=== PATIENT | male | born 1935 | race Caucasian/White ===

== ENCOUNTER 2018-08-12 14:53 | Emergency (ER) | payer MEDICARE ==
[2018-08-12] MEDS ORDERED: LIDOCAINE 1%-EPI 1:100,000 30 ML VIAL SQ STA (15:43)
[2018-08-12] MEDS ORDERED: DIPH,PERTUS(ACELL)TETVAC-LF 0.5 ML VIAL IM ONE (15:43)
--- NOTE | 2018-08-12 16:08 | CT ---
EXAMINATION TYPE: CT brain cspine wo con, CT facial bones wo con DATE OF EXAM: 08/12/2018 COMPARISON: CT brain August 14, 2015 HISTORY: Fall injury, laceration to left side of forehead, headache and neck pain. CT DLP: mGycm. Automated Exposure Control for Dose Reduction was Utilized. TECHNIQUE: CT scan of the head and cervical spine are performed without contrast. FINDINGS: There is no acute intracranial hemorrhage or midline shift identified. There is ventricul ar and sulcal prominence consistent with diffuse cerebral atrophy. There is low-attenuation in the de ep and periventricular white matter consistent with product of chronic small vessel ischemic change. The calvarium is intact. Nasal bones are intact. Orbital floors and palacio are grossly intact. The globes are intact bilaterall y. Intraconal fat is preserved. Zygomatic arches are intact. There is small acute hematoma over left zygoma. Overlying bandage material is seen. The pterygoid plates are intact. The mandible is intact. Temporomandibular joints are maintained bilaterally. There is moderate flattening of the mandibular c ondyles seen bilaterally. There is nearly completely opacified right maxillary sinus with anterior an d lateral wall thickening and ossification consistent with product of chronic sinus disease. Remainde r paranasal sinuses are clear. Cervical spine is visualized in its entirety from C1 through upper thoracic levels and demonstrates s traightens alignment without evidence of acute fracture or dislocation. Prevertebral soft tissue padmaja ears within normal limits. The C1-C2 articulation is within normal limits on the coronal images. Vertebral body heights are maintained. There is moderate disc space narrowing C3-C4 through C5-C6 lev els with mild to moderate anterior spurring C4-C5 and C5-C6 level that is identified. Review of axial images shows left-sided uncovertebral facet degenerative changes C3-C4 level. Lung apices are clear. Thyroid gland is felt within normal limits. Prominent but subcentimeter lymph nodes are seen through out the neck bilaterally. Soft tissue fullness in the vallecula could reflect retained secretions. IMPRESSION: 1. There is no acute fracture or dislocation evident in the cervical spine. Straightening and multile stanford degenerative changes are present. 2. No acute intracranial hemorrhage or midline shift is seen. Stable fairly moderate diffuse cerebral atrophy and chronic small vessel ischemic change. 3. No acute facial bone fracture or dislocation. Small focal acute hematoma over left zygoma noted.
--- NOTE | 2018-08-12 16:19 | ED ---
Fall HPI - General Chief Complaint: Fall Stated Complaint: Fall Time Seen by Provider: 08/12/18 15:12 Source: patient, RN notes reviewed, old records reviewed Mode of arrival: EMS - History of Present Illness Initial Comments: 83-year-old male currently on several toe for A. fib presents emergency Department after tripping over a curb. Patient reports he fell and hit the left eyebrow and complains of left forearm abrasion and left knee pain. Patient reports he has no chest pain shortness breath or any other symptoms prior to the trip and fall. Patient states that he has a laceration over the left eyebrow will continue to bleed. He denies any pain with extraocular eye movements. Patient relates that he has no significant headache, disequilibrium , reading in ears, peripheral paresthesias. - Related Data Home Medications Medication Instructions Recorded Confirmed Aspirin 81 mg PO DAILY 12/06/14 08/12/18 Cetirizine HCl [Zyrtec] 10 mg PO DAILY PRN 12/06/14 08/12/18 Furosemide [Lasix] 40 mg PO DAILY PRN 12/06/14 08/12/18 Lisinopril 40 mg PO DAILY 12/06/14 08/12/18 Simvastatin [Zocor] 10 mg PO HS 12/06/14 08/12/18 Rivaroxaban [Xarelto] 15 mg PO HS 03/10/15 08/12/18 Cyanocobalamin [Vitamin B-12] 500 mcg PO DAILY 03/31/15 08/12/18 DULoxetine HCL [Cymbalta] 120 mg PO QAM 03/31/15 08/12/18 Multivitamin [Men's Multi-Vitamin] 1 tab PO DAILY 03/31/15 08/12/18 Fesoterodine Fumarate [Toviaz] 8 mg PO DAILY 11/03/15 08/12/18 traMADol HCL [Ultram] 50 mg PO Q4H PRN 10/22/16 08/12/18 Cholecalciferol [Vitamin D3] 1,000 unit PO DAILY 08/12/18 08/12/18 Diclofenac Sodium Gel [Voltaren 2 gm TOPICAL QID PRN 08/12/18 08/12/18 Gel] Escitalopram Oxalate [Lexapro] 20 mg PO DAILY 08/12/18 08/12/18 Hydrocortisone Cream 1 applic TOPICAL BID 08/12/18 08/12/18 [Hydrocortisone 1% Cream] L.acidoph,Paracasei, B.lactis 1 cap PO DAILY 08/12/18 08/12/18 [Probiotic] Previous Rx's Medication Instructions Recorded Cephalexin [Keflex] 500 mg PO Q8HR #21 cap 08/12/18 Allergies Allergy/AdvReac Type Severity Reaction Status Date / Time No Known Allergies Allergy Verified 08/12/18 15:30 Review of Systems ROS Statement: Those systems with pertinent positive or pertinent negative responses have been documented in the HPI. ROS Other: All systems not noted in ROS Statement are negative. Past Medical History Past Medical History: Atrial Fibrillation, Coronary Artery Disease (CAD), Diabetes Mellitus, Hypertension Additional Past Medical History / Comment(s): SCOLIOSIS/STENOSIS OF BACK. 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 HYBERCARBIA (USES NON-INVASIVE VENTILATOR). DIET CONTROLLED DIABETIC. Last Myocardial Infarction Date:: 1981 History of Any Multi-Drug Resistant Organisms: None Reported Past Surgical History: Cholecystectomy, Prostate Surgery Additional Past Surgical History / Comment(s): TURP. EPIDURAL PAIN PROCEDURES. CHRISTI CATARACTS. PER. STIM IMPLANTED PER DR LAYNE 08/1015 Past Anesthesia/Blood Transfusion Reactions: No Reported Reaction Past Psychological History: Depression Smoking Status: Former smoker Past Alcohol Use History: Rare Past Drug Use History: None Reported - Past Family History Mother Family Medical History: No Reported History Father Additional Family Medical History / Comment(s): APPENDICITIS- General Exam - General Exam Comments Initial Comments: 83-year-old male. Alert and oriented 3. No acute distress. Limitations: no limitations General appearance: alert, in no apparent distress Head exam: Present: atraumatic, normocephalic, normal inspection Eye exam: Present: normal appearance, other (4 cm laceration over the left eyebrow.) ENT exam: Present: normal exam, mucous membranes moist Neck exam: Present: normal inspection. Absent: tenderness, meningismus, lymphadenopathy Respiratory exam: Present: normal lung sounds bilaterally Cardiovascular Exam: Present: regular rate, normal rhythm, normal heart sounds. Absent: systolic murmur, diastolic murmur, rubs, gallop, clicks GI/Abdominal exam: Present: soft, normal bowel sounds. Absent: distended, tenderness, guarding, rebound, rigid Extremities exam: Present: normal inspection, full ROM, normal capillary refill , other (Patient has contusion of the left knee. Full range of motion noted. Patient is a 4 cm skin tear over the left forearm.). Absent: tenderness, pedal edema, joint swelling, calf tenderness Back exam: Present: normal inspection Neurological exam: Present: alert, oriented X3, CN II-XII intact Expanded Patient oriented to: Present: person, place, time Speech: Present: fluid speech Cranial nerves: EOM's Intact: Normal Cerebellar function: Finger to Nose: Normal Upper motor neuron: Pronator Drift: Normal Sensory exam: Upper Extremity Light Touch: Normal, Lower Extremity Light Touch: Normal Motor strength exam: RUE: 5, LUE: 5, RLE: 5, LLE: 5 Eye Response: (4) open spontaneously Motor Response: (6) obeys commands Verbal Response: (5) oriented Jean Claude Total: 15 Psychiatric exam: Present: normal affect, normal mood Skin exam: Present: warm, dry, intact, normal color. Absent: rash Course Vital Signs 08/12/18 08/12/18 15:08 18:40 Temperature 97.7 F 97.3 F L Pulse Rate 73 71 Respiratory 20 16 Rate Blood Pressure 161/81 155/86 O2 Sat by Pulse 93 L 92 L Oximetry - Reevaluation(s) Reevaluation #1: 08/12/18 17:13 Patient is a from the c-collar. Patient's wound over his right eye while is very cleaned and irrigated. He had multiple bleeding superficial vessels. Multiple stitches were used internally to ligate the bleeding vessels. 5 sutures were placed externally. Wound was thoroughly cleansed afterwards. Reevaluation #2: 08/12/18 17:40 Patient family Patient was discussed with being on blood thinner and having a head injury could be monitored and transferred to [facility]. The state that they did not want to do that at this time and preferred to be sent home for evaluation. Procedures - Laceration Laceration #1 Site: face (Left eyebrow) Size (cm): 4 Description: irregular Depth: involves muscle layer Anesthetic Used: lidocaine 1% Anesthesia Technique: local infiltration Amount (mls): 4 Pre-repair: wound explored, irrigated extensively Type of Sutures: nylon, vicryl Size of Sutures: 5-0 Number of Sutures: 12 (7 Vicryl sutures to ligate bleeding vessels internal of the wound. 5 external stitches in nylon were placed.) Technique: simple, interrupted, other (Sdwgel-ue-lbzst stitches placed internally. 7 internal stitches placed.) Patient Tolerated Procedure: well, no complications Medical Decision Making - Medical Decision Making This is an 83-year-old male presents emergency Department chief complaint of trip and fall over a curb. He has a significant contusion and laceration over the left eyebrow. He isn't L Olvin for chronic A. fib. Patient had a significantly bleeding wound over the left eyebrow. The wound was cleansed, and he did have diffuse multiple stitches to violently bleeding vessels. The wound is then closed and well approximated. Had computed tomography scan of his brain and C-spine as well as the facial bones. There is no acute of any acute changes. Patient is neurologically intact. Has no deficits. He has a small skin tear over the left forearm as well as was closed with Steri-Strips. Patient will be started on Keflex fairly contaminated wounds from the dirt and grass. Patient tolerates feels well. Neurologically intact. I did offer transfer to extended facility with neuro surgical or medical intervention due to the fact he is on blood thinners and head injury. Patient family states he didn't want Dilantin rather monitor him home. He will be going home with his . He is anxious for discharge. - Radiology Data Radiology results: report reviewed CT brain and C-spine shows no acute fracture dislocation evident the cervical spine. Straightening and multilevel degenerative changes are present. No acute intracranial hemorrhage or midline shift seen. Still fairly moderate diffuse cerebral atrophy and chronic small vessel ischemic change. There is no acute facial bone fractures or dislocations. Small acute hematoma over the left zygoma. Disposition Clinical Impression: Fall, Eyebrow laceration, Contusion of knee, left, Abrasion of left forearm Disposition: HOME SELF-CARE Condition: Good Instructions: Fall Prevention for Older Adults (ED) Additional Instructions: Patient has been monitored in the next 24-48 hours. Patient has any signs of altered mental status, vomiting decreased awareness please return to emergency department at once. Patient should keep the area of the laceration clean and with dry dressings. Apply antibiotic ointment over the area. Follow-up with primary care physician. Return to the emergency department if any alarming signs or symptoms occur. Please return to the emergency room in 8-10 days to have sutures removed. Please leave wound covered for the first 24-48 hours and then leave open to air after that time. Please use clean soap and water to clean the suture area to prevent scabbing over the top of your sutures. Please watch for any signs of infection which may include but not limited to increased pain, swelling, redness , fever or chills. Please return to the emergency room if any signs of infection do occur. Please return to the emergency room for any other concerns or complications. Prescriptions: Cephalexin [Keflex] 500 mg PO Q8HR #21 cap Is patient prescribed a controlled substance at d/c from ED?: No Referrals: Karina Zuluaga MD [Primary Care Provider] - 1-2 days Time of Disposition: 18:10
--- NOTE | 2018-08-12 17:31 | XR ---
EXAMINATION TYPE: XR forearm LT DATE OF EXAM: 08/12/2018 COMPARISON: NONE HISTORY: Pain TECHNIQUE: 2 views FINDINGS: I see no fracture nor dislocation. Elbow joint and wrist joint appear intact. IMPRESSION: Negative left forearm exam. Osteopenia.
--- NOTE | 2018-08-12 17:32 | XR ---
EXAMINATION TYPE: XR knee complete LT DATE OF EXAM: 08/12/2018 COMPARISON: NONE HISTORY: Knee pain TECHNIQUE: 3 views FINDINGS: There is moderate narrowing of the medial joint space. There is spurring of medial femoral and tibial condyles. There is no evidence of fracture nor dislocation. There is no definite joint eff usion. 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 No fracture.
[2018-08-12 18:45] VITALS: BP 155/86; PULSE 71; RESP 16; TEMP 97.3
== END 2018-08-12 19:00 | disposition home or self-care (01) ==
LOC: EC 14:53
DX: S01.112A Laceration without foreign body of left eyelid and periocular area, initial encounter (principal); S80.02XA Contusion of left knee, initial encounter; S50.812A Abrasion of left forearm, initial encounter; I48.91 Unspecified atrial fibrillation; I25.10 Atherosclerotic heart disease of native coronary artery without angina pectoris; I10 Essential (primary) hypertension; F32.9 Major depressive disorder, single episode, unspecified; Z87.891 Personal history of nicotine dependence; Z79.82 Long term (current) use of aspirin; Z79.01 Long term (current) use of anticoagulants; Z79.899 Other long term (current) drug therapy; W01.10XA Fall on same level from slipping, tripping and stumbling with subsequent striking against unspecified object, initial encounter; Y92.89 Other specified places as the place of occurrence of the external cause; Z23 Encounter for immunization
CPT/HCPCS: 12013; 12052; 70450; 70486; 72125; 90471; 90715; 99285

== ENCOUNTER 2018-08-17 15:35 | Inpatient (IN) | payer MEDICARE ==
[2018-08-17] MEDS ORDERED: ONDANSETRON 4 MG/2 ML VIAL IVP STA (16:10)
--- NOTE | 2018-08-17 16:14 | ED ---
General Adult HPI - General Chief complaint: Nausea/Vomiting/Diarrhea Stated complaint: Nausea Time Seen by Provider: 08/17/18 16:01 Source: patient, EMS, RN notes reviewed, old records reviewed Mode of arrival: EMS Limitations: no limitations - History of Present Illness Initial comments: 83-year-old male presents for evaluation of nausea vomiting and confusion. Patient's symptoms have been present for the past one week. Patient had a fall approximately a week ago resulting in head injury and laceration above the right eye. He is currently on anticoagulation with history of atrial fibrillation. He presents to the emergency department at that time and was evaluated, he was discharged with instructions to return with worsening or changing symptoms. He's had vomiting over the past 24 hours, 6 total episodes. He does report some mild lower abdominal pain as well. No fever or chills. No focal numbness or weakness reported. Patient denies vision changes or headache. - Related Data Home Medications Medication Instructions Recorded Confirmed Aspirin 81 mg PO HS 12/06/14 08/17/18 Cetirizine HCl [Zyrtec] 10 mg PO DAILY PRN 12/06/14 08/17/18 Furosemide [Lasix] 40 mg PO DAILY PRN 12/06/14 08/17/18 Lisinopril 40 mg PO HS 12/06/14 08/17/18 Simvastatin [Zocor] 10 mg PO HS 12/06/14 08/17/18 Rivaroxaban [Xarelto] 15 mg PO HS 03/10/15 08/17/18 Cyanocobalamin [Vitamin B-12] 2,500 mcg PO DAILY 03/31/15 08/17/18 DULoxetine HCL [Cymbalta] 120 mg PO QAM 03/31/15 08/17/18 Multivitamin [Men's Multi-Vitamin] 1 tab PO DAILY 03/31/15 08/17/18 Fesoterodine Fumarate [Toviaz] 8 mg PO HS 11/03/15 08/17/18 traMADol HCL [Ultram] 100 mg PO TID PRN 10/22/16 08/17/18 Cholecalciferol [Vitamin D3] 4,000 unit PO DAILY 08/12/18 08/17/18 Diclofenac Sodium Gel [Voltaren 2 gm TOPICAL QID PRN 08/12/18 08/17/18 Gel] Escitalopram Oxalate [Lexapro] 20 mg PO DAILY 08/12/18 08/17/18 Hydrocortisone Cream 1 applic TOPICAL BID 08/12/18 08/17/18 [Hydrocortisone 1% Cream] L.acidoph,Paracasei, B.lactis 1 cap PO DAILY 08/12/18 08/17/18 [Probiotic] [place]-3 Fatty Acids/Fish Oil [Fish 1 cap PO DAILY 08/17/18 08/17/18 Oil 1,000 mg Softgel] Polyethylene Glycol 3350 [Miralax] 17 gm PO DAILY PRN 08/17/18 08/17/18 Previous Rx's Medication Instructions Recorded Cephalexin [Keflex] 500 mg PO Q8HR #21 cap 08/12/18 Allergies Allergy/AdvReac Type Severity Reaction Status Date / Time No Known Allergies Allergy Verified 08/17/18 16:32 Review of Systems ROS Statement: Those systems with pertinent positive or pertinent negative responses have been documented in the HPI. ROS Other: All systems not noted in ROS Statement are negative. Past Medical History Past Medical History: Atrial Fibrillation, Coronary Artery Disease (CAD), Diabetes Mellitus, Hypertension Additional Past Medical History / Comment(s): SCOLIOSIS/STENOSIS OF BACK. 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 HYBERCARBIA (USES NON-INVASIVE VENTILATOR). DIET CONTROLLED DIABETIC. Last Myocardial Infarction Date:: 1981 History of Any Multi-Drug Resistant Organisms: None Reported Past Surgical History: Cholecystectomy, Prostate Surgery Additional Past Surgical History / Comment(s): TURP. EPIDURAL PAIN PROCEDURES. CHRISTI CATARACTS. PER. STIM IMPLANTED PER DR LAYNE 08/1015 Past Anesthesia/Blood Transfusion Reactions: No Reported Reaction Past Psychological History: Depression Smoking Status: Former smoker Past Alcohol Use History: Rare Past Drug Use History: None Reported - Past Family History Mother Family Medical History: No Reported History Father Additional Family Medical History / Comment(s): APPENDICITIS- General Exam Limitations: no limitations General appearance: alert, in no apparent distress Head exam: Absent: atraumatic (Left orbital ecchymosis, healing laceration on the orbital ridge) Eye exam: Present: PERRL, EOMI ENT exam: Present: normal exam Neck exam: Present: normal inspection. Absent: tenderness, meningismus Respiratory exam: Present: normal lung sounds bilaterally. Absent: respiratory distress Cardiovascular Exam: Present: regular rate, irregular rhythm GI/Abdominal exam: Present: soft. Absent: distended, tenderness Extremities exam: Present: normal inspection, normal capillary refill. Absent: pedal edema Neurological exam: Present: alert, oriented X3, CN II-XII intact. Absent: motor sensory deficit Psychiatric exam: Present: normal affect, normal mood Skin exam: Present: warm, dry Course Vital Signs 08/17/18 08/17/18 08/17/18 15:42 15:45 15:48 Temperature 98.2 F Pulse Rate 82 Respiratory 17 Rate Blood Pressure 168/69 O2 Sat by Pulse 86 L 93 L Oximetry 08/17/18 19:22 Temperature Pulse Rate 80 Respiratory 17 Rate Blood Pressure 119/56 O2 Sat by Pulse 92 L Oximetry Medical Decision Making - Medical Decision Making 83-year-old male presenting with confusion, nausea vomiting, and gait instability. Patient had recent fall approximately one week ago, head CT is repeated in the emergency department, this is negative for intracranial hemorrhage or mass effect. 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 He is on a noninvasive respiratory support at night. He also straight caths on a regular basis, urinalysis is negative for infection. Patient is quite unstable on his feet, he will be admitted for both neurology and physical therapy consultation regarding gait instability and multiple falls. - Lab Data Result diagrams: 08/17/18 16:29 08/17/18 16:29 Lab Results 08/17/18 08/17/18 08/17/18 Range/Units 16:29 16:29 16:29 WBC 8.2 (3.8-10.6) k/uL RBC 4.22 L (4.30-5.90) m/uL Hgb 13.2 (13.0-17.5) gm/dL Hct 40.1 (39.0-53.0) % MCV 95.0 (80.0-100.0) fL MCH 31.2 (25.0-35.0) pg MCHC 32.8 (31.0-37.0) g/dL RDW 13.2 (11.5-15.5) % Plt Count 142 L (150-450) k/uL Neutrophils % 79 % Lymphocytes % 11 % Monocytes % 8 % Eosinophils % 1 % Basophils % 0 % Neutrophils # 6.4 (1.3-7.7) k/uL Lymphocytes # 0.9 L (1.0-4.8) k/uL Monocytes # 0.6 (0-1.0) k/uL Eosinophils # 0.1 (0-0.7) k/uL Basophils # 0.0 (0-0.2) k/uL PT (9.0-12.0) sec INR (<1.2) APTT (22.0-30.0) sec VBG pH (7.31-7.41) VBG pCO2 (37-51) mmHg VBG HCO3 (24-28) mmol/L Sodium 141 (137-145) mmol/L Potassium (3.5-5.1) mmol/L Chloride 94 L (98-107) mmol/L Carbon Dioxide 39 H (22-30) mmol/L Anion Gap 8 mmol/L BUN 32 H (9-20) mg/dL Creatinine 0.59 L (0.66-1.25) mg/dL Est GFR (CKD-EPI)AfAm >90 (>60 ml/min/1.73 sqM) Est GFR (CKD-EPI)NonAf >90 (>60 ml/min/1.73 sqM) Glucose 120 H (74-99) mg/dL Calcium 9.5 (8.4-10.2) mg/dL Total Bilirubin 1.0 (0.2-1.3) mg/dL AST 35 (17-59) U/L ALT 31 (21-72) U/L Alkaline Phosphatase 53 (38-126) U/L Total Protein 7.2 (6.3-8.2) g/dL Albumin 3.9 (3.5-5.0) g/dL Urine Color Yellow Urine Appearance Cloudy (Clear) Urine pH 7.5 (5.0-8.0) Ur Specific Brimley 1.019 (1.001-1.035) Urine Protein Trace H (Negative) Urine Glucose (UA) Negative (Negative) Urine Ketones Negative (Negative) Urine Blood Negative (Negative) Urine Nitrite Negative (Negative) Urine Bilirubin Negative (Negative) Urine Urobilinogen 4.0 (<2.0) mg/dL Ur Leukocyte Esterase Negative (Negative) Urine RBC 1 (0-5) /hpf Urine WBC 1 (0-5) /hpf Amorphous Sediment Rare H (None) /hpf Urine Bacteria Occasional H (None) /hpf Hyaline Casts 5 H (0-2) /lpf Urine Mucus Rare H (None) /hpf 08/17/18 08/17/18 Range/Units 16:29 16:29 WBC (3.8-10.6) k/uL RBC (4.30-5.90) m/uL Hgb (13.0-17.5) gm/dL Hct (39.0-53.0) % MCV (80.0-100.0) fL MCH (25.0-35.0) pg MCHC (31.0-37.0) g/dL RDW (11.5-15.5) % Plt Count (150-450) k/uL Neutrophils % % Lymphocytes % % Monocytes % % Eosinophils % % Basophils % % Neutrophils # (1.3-7.7) k/uL Lymphocytes # (1.0-4.8) k/uL Monocytes # (0-1.0) k/uL Eosinophils # (0-0.7) k/uL Basophils # (0-0.2) k/uL PT 11.2 (9.0-12.0) sec INR 1.2 H (<1.2) APTT 23.0 (22.0-30.0) sec VBG pH 7.40 (7.31-7.41) VBG pCO2 65 H (37-51) mmHg VBG HCO3 39 H (24-28) mmol/L Sodium (137-145) mmol/L Potassium (3.5-5.1) mmol/L Chloride (98-107) mmol/L Carbon Dioxide (22-30) mmol/L Anion Gap mmol/L BUN (9-20) mg/dL Creatinine (0.66-1.25) mg/dL Est GFR (CKD-EPI)AfAm (>60 ml/min/1.73 sqM) Est GFR (CKD-EPI)NonAf (>60 ml/min/1.73 sqM) Glucose (74-99) mg/dL Calcium (8.4-10.2) mg/dL Total Bilirubin (0.2-1.3) mg/dL AST (17-59) U/L ALT (21-72) U/L Alkaline Phosphatase (38-126) U/L Total Protein (6.3-8.2) g/dL Albumin (3.5-5.0) g/dL Urine Color Urine Appearance (Clear) Urine pH (5.0-8.0) Ur Specific Brimley (1.001-1.035) Urine Protein (Negative) Urine Glucose (UA) (Negative) Urine Ketones (Negative) Urine Blood (Negative) Urine Nitrite (Negative) Urine Bilirubin (Negative) Urine Urobilinogen (<2.0) mg/dL Ur Leukocyte Esterase (Negative) Urine RBC (0-5) /hpf Urine WBC (0-5) /hpf Amorphous Sediment (None) /hpf Urine Bacteria (None) /hpf Hyaline Casts (0-2) /lpf Urine Mucus (None) /hpf Disposition Clinical Impression: Multiple falls, Unstable gait Disposition: ADMITTED IP TO THIS [facility] Condition: Stable Is patient prescribed a controlled substance at d/c from ED?: No Referrals: Karina Zuluaga MD [Primary Care Provider] - 1-2 days Decision to Admit Reason: Admit from EC Decision Date: 08/17/18 Decision Time: 19:15
[2018-08-17 16:54] LABS: Basophils % (A) 0 %; Eosinophils # (A) 0.1 k/uL (0-0.7); Eosinophils % (A) 1 %; HCT 40.1 % (39.0-53.0); HGB 13.2 gm/dL (13.0-17.5); Lymphocytes # (A) 0.9 k/uL (1.0-4.8); Lymphocytes % (A) 11 %; MCH 31.2 pg (25.0-35.0); MCHC 32.8 g/dL (31.0-37.0); Monocytes # (A) 0.6 k/uL (0-1.0); Monocytes % (A) 8 %; Neutrophils # (A) 6.4 k/uL (1.3-7.7); Neutrophils % (A) 79 %; Platelet Count 142 k/uL (150-450); RBC 4.22 m/uL (4.30-5.90); RDW 13.2 % (11.5-15.5); VBG PH 7.4 (7.31-7.41); WBC 8.2 k/uL (3.8-10.6)
[2018-08-17 16:57] LABS: Amorphous Sediment,Urine Rare /hpf; Appearance,Urine Cloudy (Clear); Bacteria,Urine Occasional /hpf; Bilirubin,Urine Negative (Negative); Blood,Urine Negative (Negative); Color,Urine Yellow; Glucose,Urine (UA) Negative (Negative); Hyaline Casts,Urine 5 /lpf (0-2); Ketones,Urine Negative (Negative); Leukocyte Esterase,Urine Negative (Negative); Mucus,Urine Rare /hpf; Nitrite,Urine Negative (Negative); PH, Urine 7.5 (5.0-8.0); Protein,Urine Trace (Negative); RBC,Urine 1 /hpf (0-5); Specific Gravity,Urine 1.019 (1.001-1.035); WBC,Urine 1 /hpf (0-5)
[2018-08-17 17:11] LABS: INR 1.2 (<1.2); Prothrombin Time 11.2 sec (9.0-12.0)
[2018-08-17 17:17] LABS: ALT 31 U/L (21-72); AST 35 U/L (17-59); Albumin 3.9 g/dL (3.5-5.0); Alkaline Phosphatase 53 U/L (38-126); Anion Gap 8 mmol/L; Blood Urea Nitrogen 32 mg/dL (9-20); Calcium 9.5 mg/dL (8.4-10.2); Carbon Dioxide 39 mmol/L (22-30); Chloride 94 mmol/L (98-107); Glucose 120 mg/dL (74-99); Sodium 141 mmol/L (137-145); Total Protein 7.2 g/dL (6.3-8.2)
--- NOTE | 2018-08-17 17:54 | CT ---
EXAMINATION TYPE: CT brain wo con DATE OF EXAM: 08/17/2018 COMPARISON: 08/12/2018 HISTORY: Nausea, weakness, s/p head trauma, bruising CT DLP: 1058.0 mGycm Automated exposure control for dose reduction was used. FINDINGS: There is some mild hypodensity in the periventricular white matter. There is cerebral cortical atroph y. There is no mass effect nor midline shift. There is no sign of intracranial hemorrhage. The calvar ium is intact. There is mucosal thickening in the right maxillary sinus unchanged. IMPRESSION: CEREBRAL ATROPHY. THERE IS SOME CHRONIC SMALL VESSEL ISCHEMIA. NO ACUTE INTRACRANIAL ABNORMALITY. BRA IN APPEARS UNCHANGED COMPARED TO OLD EXAM.
--- NOTE | 2018-08-17 18:07 | XR ---
EXAMINATION TYPE: XR KUB DATE OF EXAM: 08/17/2018 COMPARISON: NONE HISTORY: Nausea and vomiting TECHNIQUE: 2 views supine FINDINGS: There is no sign of intestinal obstruction or pneumoperitoneum. Exam is limited by the mely ent's size. Fecal pattern appears normal. There are clips from cholecystectomy. There is neural stimu lator over the left acetabulum. There is a 1 cm calcification over the left upper quadrant at the T12 -L1 level left paraspinal region. IMPRESSION: Nonacute abdomen.
--- NOTE | 2018-08-17 18:09 | XR ---
EXAMINATION TYPE: XR chest 2V DATE OF EXAM: 08/17/2018 COMPARISON: 08/14/2015 HISTORY: Nausea and vomiting TECHNIQUE: Frontal and lateral views of the chest are obtained. FINDINGS: There is elevated right diaphragm. There is interposition of the hepatic flexure of the co jeanette. There is no heart failure. Lungs appear clear of consolidation. Heart is probably enlarged. IMPRESSION: Chronic elevated right diaphragm. No heart failure. No significant change compared to ol d exam.
[2018-08-17] MEDS ORDERED: DOCUSATE 100 MG CAP PO STA (18:28)
[2018-08-17] MEDS ORDERED: MAGNESIUM CITRATE 296 ML BOTTLE PO ONE (18:28)
[2018-08-17] MEDS: SODIUM CHLORIDE 0.9% 1,000 ML IV SCH (19:13)
[2018-08-17] MEDS ORDERED: NALOXONE 0.4 MG/ML 1 ML VIAL IV PRN (19:36)
[2018-08-17] MEDS ORDERED: FUROSEMIDE 40 MG TAB PO PRN (19:38)
[2018-08-17 21:11] VITALS: BMI 32.1
[2018-08-17] MEDS: LISINOPRIL 20 MG TAB PO SCH (22:38)
[2018-08-17] MEDS: ASPIRIN 81 MG PO SCH (22:38)
[2018-08-17] MEDS: ATORVASTATIN 10 MG TAB PO SCH (22:38)
[2018-08-17] MEDS: RIVAROXABAN 15 MG TAB PO SCH (22:38)
[2018-08-17] MEDS: DOCUSATE 100 MG CAP PO SCH (22:39)
[2018-08-18 07:05] LABS: Glucose,Whole Blood 96 mg/dL (75-99)
[2018-08-18] MEDS: SODIUM CHLORIDE 0.9% 1,000 ML IV SCH ×2 (07:53)
[2018-08-18] MEDS: traMADol 50 MG TAB PO PRN (07:54)
[2018-08-18] MEDS: DOCUSATE 100 MG CAP PO SCH ×2 (07:54→22:58)
[2018-08-18 09:32] LABS: Basophils % (A) 0 %; Eosinophils # (A) 0.1 k/uL (0-0.7); Eosinophils % (A) 1 %; HCT 35.4 % (39.0-53.0); Hypochromasia Slight; Lymphocytes # (A) 0.9 k/uL (1.0-4.8); Lymphocytes % (A) 14 %; MCH 30.2 pg (25.0-35.0); MCHC 30.9 g/dL (31.0-37.0); MCV 97.6 fL (80.0-100.0); Mean Platelet Volume 9.9; Monocytes # (A) 0.4 k/uL (0-1.0); Monocytes % (A) 6 %; Neutrophils % (A) 77 %; Platelet Count 134 k/uL (150-450); RBC 3.63 m/uL (4.30-5.90); RDW 13.1 % (11.5-15.5); WBC 6.5 k/uL (3.8-10.6)
[2018-08-18 09:51] LABS: ALT 23 U/L (21-72); AST 23 U/L (17-59); Albumin 2.9 g/dL (3.5-5.0); Alkaline Phosphatase 34 U/L (38-126); Amylase <30 U/L (30-110); Anion Gap 5 mmol/L; Blood Urea Nitrogen 24 mg/dL (9-20); Calcium 8.4 mg/dL (8.4-10.2); Carbon Dioxide 33 mmol/L (22-30); Chloride 101 mmol/L (98-107); Glucose 152 mg/dL (74-99); Lipase 12 U/L (23-300); Potassium 4.4 mmol/L (3.5-5.1); Sodium 139 mmol/L (137-145); Total Bilirubin 0.6 mg/dL (0.2-1.3); Total Protein 5.4 g/dL (6.3-8.2)
[2018-08-18 11:09] LABS: Glucose,Whole Blood 115 mg/dL (75-99)
--- NOTE | 2018-08-18 13:54 | P.HPIM ---
History of Present Illness H&P Date: 08/18/18 Chief Complaint: Nausea vomiting and gait instability This is a 83-year-old male patient of Dr. Zuluaga. Patient presented to the emergency room with complaints of nausea and vomiting for 2 days. Patient fell one week prior that resulted in head injury and laceration to left forehead, patient reported to the emergency room and was discharged at that time. Patient has a known past medical history of atrial fibrillation, coronary artery, marni, diabetes mellitus and hypertension. Patient is currently on xarelato for atrial fibrillation. Patient also has history of hybercarbia and uses a non-invasive venitlator for sleep. Per patient's has been has not been wearing it as consistently as usual which may be contributing to increased confusion and unsteady gait. Patient follows with Dr. Lyman outpatient for pulmonary. Head CT completed showing cerebral atrophy. There is some chronic small vessel ischemia. No acute intracranial abnormality. Brain appears unchanged compared to old exam. Chest x-ray completed showing chronic elevated right diaphragm. No heart failure. No significant change compared to old exam. KUB completed of abdomen showing nonacute abdomen. Amylase less than 30 , lipase 12. Dr. Sánchez consulted for neurology. Patient and requesting pulmonary services to be consulted. Patient is alert and oriented 3. Patient does not display any neuro deficits. Equal strength throughout. No signs of slurred speech or facial droop. Review of Systems please refer to HPI otherwise unremarkable Past Medical History Past Medical History: Atrial Fibrillation, Coronary Artery Disease (CAD), Diabetes Mellitus, Hypertension Additional Past Medical History / Comment(s): SCOLIOSIS/STENOSIS OF BACK. 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 HYBERCARBIA (USES NON-INVASIVE VENTILATOR). DIET CONTROLLED DIABETIC. Self caths at least 4 times a day,due to urine inc. Had botox x1 04/16/2018. Last Myocardial Infarction Date:: 1981 History of Any Multi-Drug Resistant Organisms: None Reported Past Surgical History: Cholecystectomy, Prostate Surgery Additional Past Surgical History / Comment(s): TURP. EPIDURAL PAIN PROCEDURES. CHRISTI CATARACTS. PER. STIM IMPLANTED PER DR LAYNE 08/2015 Past Anesthesia/Blood Transfusion Reactions: No Reported Reaction Past Psychological History: Depression Additional Psychological History / Comment(s): HX OF CLAUSTROPHOBIA. Smoking Status: Former smoker Past Alcohol Use History: Rare Past Drug Use History: None Reported - Past Family History Mother Family Medical History: No Reported History Father Additional Family Medical History / Comment(s): APPENDICITIS- Medications and Allergies Home Medications Medication Instructions Recorded Confirmed Type Aspirin 81 mg PO HS 12/06/14 08/17/18 History Cetirizine HCl [Zyrtec] 10 mg PO DAILY PRN 12/06/14 08/17/18 History Furosemide [Lasix] 40 mg PO DAILY PRN 12/06/14 08/17/18 History Lisinopril 40 mg PO HS 12/06/14 08/17/18 History Simvastatin [Zocor] 10 mg PO HS 12/06/14 08/17/18 History Rivaroxaban [Xarelto] 15 mg PO HS 03/10/15 08/17/18 History Cyanocobalamin [Vitamin B-12] 2,500 mcg PO DAILY 03/31/15 08/17/18 History DULoxetine HCL [Cymbalta] 120 mg PO QAM 03/31/15 08/17/18 History Multivitamin [Men's Multi-Vitamin] 1 tab PO DAILY 03/31/15 08/17/18 History Fesoterodine Fumarate [Toviaz] 8 mg PO HS 11/03/15 08/17/18 History traMADol HCL [Ultram] 100 mg PO TID PRN 10/22/16 08/17/18 History Cephalexin [Keflex] 500 mg PO Q8HR #21 cap 08/12/18 08/17/18 Rx Cholecalciferol [Vitamin D3] 4,000 unit PO DAILY 08/12/18 08/17/18 History Diclofenac Sodium Gel [Voltaren 2 gm TOPICAL QID PRN 08/12/18 08/17/18 History Gel] Escitalopram Oxalate [Lexapro] 20 mg PO DAILY 08/12/18 08/17/18 History Hydrocortisone Cream 1 applic TOPICAL BID 08/12/18 08/17/18 History [Hydrocortisone 1% Cream] L.acidoph,Paracasei, B.lactis 1 cap PO DAILY 08/12/18 08/17/18 History [Probiotic] [place]-3 Fatty Acids/Fish Oil [Fish 1 cap PO DAILY 08/17/18 08/17/18 History Oil 1,000 mg Softgel] Polyethylene Glycol 3350 [Miralax] 17 gm PO DAILY PRN 08/17/18 08/17/18 History Allergies Allergy/AdvReac Type Severity Reaction Status Date / Time No Known Allergies Allergy Verified 08/17/18 16:32 Physical Exam Vitals: Vital Signs Temp Pulse Pulse Resp BP BP Pulse Ox 08/18/18 05:00 98.4 F 73 16 110/54 90 L 08/18/18 00:00 75 17 08/17/18 21:00 97.5 F L 75 143/67 90 L 08/17/18 19:22 80 17 119/56 92 L 08/17/18 15:48 98.2 F 08/17/18 15:45 93 L 08/17/18 15:42 82 17 168/69 86 L Intake and Output 08/17/18 08/18/18 08/18/18 22:59 06:59 14:59 Intake Total 1130 180 Output Total 300 Balance 1130 -120 Intake: Amount of Fluid Infused ( 300 ml) Oral 830 180 Output: Urine 300 Other: Voiding Method Diaper Diaper Self-Catheterization Self-Catheterization Weight 104.326 kg 104.326 kg Head normocephalic left eye laceration with stitches. Left sided bruising to face Neck supple Lungs diminished bilaterally Heart regular rate and rhythm S1-S2, no rub or gallop Abdomen is soft nontender nondistended positive bowel sounds no hepatosplenomegaly Extremities no edema Neuro alert and orientated to 3 Results CBC & Chem 7: 08/18/18 08:57 08/18/18 08:57 Labs: Abnormal Lab Results - Last 24 Hours (Table) 08/17/18 08/17/18 08/17/18 Range/Units 16:29 16:29 16:29 RBC 4.22 L (4.30-5.90) m/uL Hgb (13.0-17.5) gm/dL Hct (39.0-53.0) % MCHC (31.0-37.0) g/dL Plt Count 142 L (150-450) k/uL Lymphocytes # 0.9 L (1.0-4.8) k/uL INR (<1.2) VBG pCO2 (37-51) mmHg VBG HCO3 (24-28) mmol/L Chloride 94 L (98-107) mmol/L Carbon Dioxide 39 H (22-30) mmol/L BUN 32 H (9-20) mg/dL Creatinine 0.59 L (0.66-1.25) mg/dL Glucose 120 H (74-99) mg/dL POC Glucose (mg/dL) (75-99) mg/dL Alkaline Phosphatase (38-126) U/L Total Protein (6.3-8.2) g/dL Albumin (3.5-5.0) g/dL Amylase (30-110) U/L Lipase (23-300) U/L Urine Protein Trace H (Negative) Amorphous Sediment Rare H (None) /hpf Urine Bacteria Occasional H (None) /hpf Hyaline Casts 5 H (0-2) /lpf Urine Mucus Rare H (None) /hpf 08/17/18 08/17/18 08/18/18 Range/Units 16:29 16:29 08:57 RBC 3.63 L (4.30-5.90) m/uL Hgb 11.0 L (13.0-17.5) gm/dL Hct 35.4 L (39.0-53.0) % MCHC 30.9 L (31.0-37.0) g/dL Plt Count 134 L (150-450) k/uL Lymphocytes # 0.9 L (1.0-4.8) k/uL INR 1.2 H (<1.2) VBG pCO2 65 H (37-51) mmHg VBG HCO3 39 H (24-28) mmol/L Chloride (98-107) mmol/L Carbon Dioxide (22-30) mmol/L BUN (9-20) mg/dL Creatinine (0.66-1.25) mg/dL Glucose (74-99) mg/dL POC Glucose (mg/dL) (75-99) mg/dL Alkaline Phosphatase (38-126) U/L Total Protein (6.3-8.2) g/dL Albumin (3.5-5.0) g/dL Amylase (30-110) U/L Lipase (23-300) U/L Urine Protein (Negative) Amorphous Sediment (None) /hpf Urine Bacteria (None) /hpf Hyaline Casts (0-2) /lpf Urine Mucus (None) /hpf 08/18/18 08/18/18 Range/Units 08:57 11:08 RBC (4.30-5.90) m/uL Hgb (13.0-17.5) gm/dL Hct (39.0-53.0) % MCHC (31.0-37.0) g/dL Plt Count (150-450) k/uL Lymphocytes # (1.0-4.8) k/uL INR (<1.2) VBG pCO2 (37-51) mmHg VBG HCO3 (24-28) mmol/L Chloride (98-107) mmol/L Carbon Dioxide 33 H (22-30) mmol/L BUN 24 H (9-20) mg/dL Creatinine 0.57 L (0.66-1.25) mg/dL Glucose 152 H (74-99) mg/dL POC Glucose (mg/dL) 115 H (75-99) mg/dL Alkaline Phosphatase 34 L (38-126) U/L Total Protein 5.4 L (6.3-8.2) g/dL Albumin 2.9 L (3.5-5.0) g/dL Amylase <30 L (30-110) U/L Lipase 12 L (23-300) U/L Urine Protein (Negative) Amorphous Sediment (None) /hpf Urine Bacteria (None) /hpf Hyaline Casts (0-2) /lpf Urine Mucus (None) /hpf Thrombosis Risk Factor Assmnt - Choose All That Apply Each Factor Represents 1 point: Swollen legs (current) Each Risk Factor Represents 3 Points: Age 75 years or older Thrombosis Risk Factor Assessment Total Risk Factor Score: 4 Thrombosis Risk Factor Assessment Level: Moderate Risk Assessment and Plan Assessment: 1. Nausea and vomiting. KUB completed completed showing nonacute abdomen. 2. Recent fall with injury to head. patient fell one week prior. Head CT completed this admission showing cerebral atrophy. There is some chronic small vessel ischemia. No acute intracranial abnormality. Brain appears unchanged compared to old exam. Neurology has been consulted 3. hypercapnia. Patient wears noninvasive home ventilator. Chest x-ray completed in emergency room showing chronic elevated right diaphragm. No heart failure. No significant change compared to old exam. Patient's family requesting pulmonary services be consulted. 4. Atrial fibrillation patient maintained on xarelto. 5. Diabetes mellitus 6. Essential hypertension 7. History of coronary artery disease DVT prophylaxis of xarelato, GI prophylaxis Protonix Time with Patient: Greater than 30 (Greater than 60% of the total time spent in counseling and coordination of care.I performed an examination of the patient and discussed their management with the Nurse Practitioner. I have reviewed the Nurse Practitioner's notes and agree with the documented findings and plan of care)
--- NOTE | 2018-08-18 15:14 | P.CNPUL ---
History of Present Illness Consult date: 08/18/18 Requesting physician: Hortencia Doan Reason for consult: other Chief complaint: Confusion, chronic CO2 retainer, right diaphragmatic paralysis History of present illness: This is a 83-year-old white male patient of Dr. Zuluaga, who presented to the emergency department on on 08/17/2018 for evaluation of nausea, vomiting, and confusion. Patient symptoms started about a week ago, patient had a fall, and sustained a laceration to his left forehead above the left eye. He was seen in the emergency department, and the left forearm abrasion and left knee pain. Patient is on Eliquis for chronic atrial fibrillation. Left above the eye laceration was approximated with sutures. He had a CT of the head, C-spine as well as the facial bones, and there were no acute changes. Patient was neurologically intact, patient was started on Keflex for his contaminated wounds from the dirt and grass and subsequently discharged home. 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 Following the fall, patient was unable to wear his AVAPS mask related to facial bruising, and laceration, for about a week. Today he presents to the emergency department with complaints of vomiting over the past 24 hours, total of 6 episodes. He reports some mild lower abdominal pain, no fever or chills, no focal weakness, no headache, or vision changes. Patient reports not being able to have a bowel movement in the last 4 days. Patient was noted to be more confused and was noted to be quite unstable on his feet. Brain CT showed cerebral atrophy, some chronic small vessel ischemia. Chest x-ray showed a chronically elevated right diaphragm, no heart failure. KUB showed nonacute abdomen. Venous blood gas was obtained in the emergency department and showed pH of 7.40, pCO2 of 65, and bicarb of 39, consistent with chronic hypercapnic respiratory failure. WBC was 8.2, hemoglobin is 13.2, platelet, is 142, INR is 1.2, sodium is 141, chloride was 94, CO2 is 39, BUN is 32, creatinine is 0.59. LFTs were within normal limits. Urinalysis showed trace protein, occasional bacteria but negative for leukocyte esterase or nitrites. Amylase was less than 30, lipase was 12. Patient is receiving gentle hydration in the form of 0.9 normal saline at a rate of 50 ML per hour. Patient was able to wear his AVAPS again, and on today's labs CO2 is down to 33. Patient is awake and alert , he is answering questions appropriately. Effusion seems to have resolved, although patient continues to have some weakness, constipation, and mild lower abdominal discomfort Review of Systems All systems: negative Constitutional: Denies chills, Denies fever Eyes: denies blurred vision, denies pain Ears, nose, mouth and throat: Denies headache, Denies sore throat Cardiovascular: Denies chest pain, Denies shortness of breath Respiratory: Denies cough Gastrointestinal: Denies abdominal pain, Denies diarrhea, Denies nausea, Denies vomiting Musculoskeletal: Denies myalgias Integumentary: Denies pruritus, Denies rash Neurological: Denies numbness, Denies weakness Psychiatric: Denies anxiety, Denies depression Endocrine: Denies fatigue, Denies weight change Past Medical History Past Medical History: Atrial Fibrillation, Coronary Artery Disease (CAD), Diabetes Mellitus, Hypertension Additional Past Medical History / Comment(s): SCOLIOSIS/STENOSIS OF BACK. 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 HYBERCARBIA (USES NON-INVASIVE VENTILATOR). DIET CONTROLLED DIABETIC. Self caths at least 4 times a day,due to urine inc. Had botox x1 04/16/2018. Last Myocardial Infarction Date:: 1981 History of Any Multi-Drug Resistant Organisms: None Reported Past Surgical History: Cholecystectomy, Prostate Surgery Additional Past Surgical History / Comment(s): TURP. EPIDURAL PAIN PROCEDURES. CHRISTI CATARACTS. PER. STIM IMPLANTED PER DR LAYNE 08/2015 Past Anesthesia/Blood Transfusion Reactions: No Reported Reaction Past Psychological History: Depression Additional Psychological History / Comment(s): HX OF CLAUSTROPHOBIA. Smoking Status: Former smoker Past Alcohol Use History: Rare Past Drug Use History: None Reported - Past Family History Mother Family Medical History: No Reported History Father Additional Family Medical History / Comment(s): APPENDICITIS- Medications and Allergies Home Medications Medication Instructions Recorded Confirmed Type Aspirin 81 mg PO HS 12/06/14 08/17/18 History Cetirizine HCl [Zyrtec] 10 mg PO DAILY PRN 12/06/14 08/17/18 History Furosemide [Lasix] 40 mg PO DAILY PRN 12/06/14 08/17/18 History Lisinopril 40 mg PO HS 12/06/14 08/17/18 History Simvastatin [Zocor] 10 mg PO HS 12/06/14 08/17/18 History Rivaroxaban [Xarelto] 15 mg PO HS 03/10/15 08/17/18 History Cyanocobalamin [Vitamin B-12] 2,500 mcg PO DAILY 03/31/15 08/17/18 History DULoxetine HCL [Cymbalta] 120 mg PO QAM 03/31/15 08/17/18 History Multivitamin [Men's Multi-Vitamin] 1 tab PO DAILY 03/31/15 08/17/18 History Fesoterodine Fumarate [Toviaz] 8 mg PO HS 11/03/15 08/17/18 History traMADol HCL [Ultram] 100 mg PO TID PRN 10/22/16 08/17/18 History Cephalexin [Keflex] 500 mg PO Q8HR #21 cap 08/12/18 08/17/18 Rx Cholecalciferol [Vitamin D3] 4,000 unit PO DAILY 08/12/18 08/17/18 History Diclofenac Sodium Gel [Voltaren 2 gm TOPICAL QID PRN 08/12/18 08/17/18 History Gel] Escitalopram Oxalate [Lexapro] 20 mg PO DAILY 08/12/18 08/17/18 History Hydrocortisone Cream 1 applic TOPICAL BID 08/12/18 08/17/18 History [Hydrocortisone 1% Cream] L.acidoph,Paracasei, B.lactis 1 cap PO DAILY 08/12/18 08/17/18 History [Probiotic] [place]-3 Fatty Acids/Fish Oil [Fish 1 cap PO DAILY 08/17/18 08/17/18 History Oil 1,000 mg Softgel] Polyethylene Glycol 3350 [Miralax] 17 gm PO DAILY PRN 08/17/18 08/17/18 History Allergies Allergy/AdvReac Type Severity Reaction Status Date / Time No Known Allergies Allergy Verified 08/17/18 16:32 Physical Exam Vitals: Vital Signs Temp Pulse Pulse Resp BP BP Pulse Ox 08/18/18 05:00 98.4 F 73 16 110/54 90 L 08/18/18 00:00 75 17 08/17/18 21:00 97.5 F L 75 143/67 90 L 08/17/18 19:22 80 17 119/56 92 L 08/17/18 15:48 98.2 F 08/17/18 15:45 93 L 08/17/18 15:42 82 17 168/69 86 L Intake and Output 08/17/18 08/18/18 08/18/18 22:59 06:59 14:59 Intake Total 1130 180 Output Total 300 Balance 1130 -120 Intake: Amount of Fluid Infused ( 300 ml) Oral 830 180 Output: Urine 300 Other: Voiding Method Diaper Diaper Self-Catheterization Self-Catheterization Weight 104.326 kg 104.326 kg GENERAL EXAM: Alert, doesn't, 83-year-old white male comfortable in no apparent distress. Currently on AVAPS machine HEAD: Normocephalic/atraumatic. Healing laceration with stitches above left eye , facial bruising noted on the left side EYES: Normal reaction of pupils, equal size. Conjunctiva pink, sclera white. NOSE: Clear with pink turbinates. THROAT: No erythema or exudates. NECK: No masses, no JVD, no thyroid enlargement, no adenopathy. CHEST: No chest wall deformity. Symmetrical expansion. LUNGS: Equal air entry with no crackles, wheeze, rhonchi or dullness. Diminished breath sounds over right base CVS: Regular rate and rhythm, normal S1 and S2, no gallops, no murmurs, no rubs ABDOMEN: Soft, nontender. No hepatosplenomegaly, normal bowel sounds, no guarding or rigidity. EXTREMITIES: No clubbing, trace edema in the pretibial areas and ankles, no cyanosis, 2+ pulses and upper and lower extremities. Left knee is covered with a dressing MUSCULOSKELETAL: Muscle strength and tone normal. SPINE: No scoliosis or deformity SKIN: No rashes CENTRAL NERVOUS SYSTEM: Alert and oriented -3. No focal deficits, tone is normal in all 4 extremities. PSYCHIATRIC: Alert and oriented -3. Appropriate affect. Intact judgment and insight. Results - Laboratory Findings CBC and BMP: 08/18/18 08:57 08/18/18 08:57 PT/INR, D-dimer PT 11.2 sec (9.0-12.0) 08/17/18 16:29 INR 1.2 (<1.2) H 08/17/18 16:29 Abnormal lab findings: Abnormal Labs 09/08/17/18 08/17/18 16:29 16:29 16:29 RBC 4.22 L Hgb Hct MCHC Plt Count 142 L Lymphocytes # 0.9 L INR VBG pCO2 VBG HCO3 Chloride 94 L Carbon Dioxide 39 H BUN 32 H Creatinine 0.59 L Glucose 120 H POC Glucose (mg/dL) Alkaline Phosphatase Total Protein Albumin Amylase Lipase Urine Protein Trace H Amorphous Sediment Rare H Urine Bacteria Occasional H Hyaline Casts 5 H Urine Mucus Rare H 08/17/18 08/17/18 08/18/18 16:29 16:29 08:57 RBC 3.63 L Hgb 11.0 L Hct 35.4 L MCHC 30.9 L Plt Count 134 L Lymphocytes # 0.9 L INR 1.2 H VBG pCO2 65 H VBG HCO3 39 H Chloride Carbon Dioxide BUN Creatinine Glucose POC Glucose (mg/dL) Alkaline Phosphatase Total Protein Albumin Amylase Lipase Urine Protein Amorphous Sediment Urine Bacteria Hyaline Casts Urine Mucus 08/18/18 08/18/18 08:57 11:08 RBC Hgb Hct MCHC Plt Count Lymphocytes # INR VBG pCO2 VBG HCO3 Chloride Carbon Dioxide 33 H BUN 24 H Creatinine 0.57 L Glucose 152 H POC Glucose (mg/dL) 115 H Alkaline Phosphatase 34 L Total Protein 5.4 L Albumin 2.9 L Amylase <30 L Lipase 12 L Urine Protein Amorphous Sediment Urine Bacteria Hyaline Casts Urine Mucus - Diagnostic Findings Chest x-ray: report reviewed, image reviewed Additional studies: Brain CT, KUB x-ray Assessment and Plan Plan: Assessment: #1. Altered mentation, increased confusion could be related to acute on chronic hypercapnic respiratory failure, related to temporary noncompliance with the AVAPs noninvasive ventilation due to facial lacerations. Could also be related to mild dehydration #2. Chronic right diaphragm paralysis, with chronic hypercapnic respiratory failure on AVAPS with tidal volume of 450, EPAP of 5 minimal, and 10 maximum, and a pressure support of 4 minimum and 20 maximum. #3. Weakness, nausea, vomiting, mild lower abdominal pain possibly related to ileus. Patient has been unable to have a bowel movement for several days #4. 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 Chronic atrial fibrillation, on Xarelto #7. Diabetes mellitus type 2 #8. Hypertension, hyperlipidemia #9. Urinary incontinence and recurrent UTIs #10. Chronic back pain, patient has a pain stimulator #11. Scoliosis #12. Depression Plan: Continue with the AVAPS at the home settings. Patient's mentation has improved , is not seem to be confused. Chest x-ray showed chronically elevated right hemidiaphragm, no heart failure, no acute process. Vital signs are stable. Continue with current medical treatment, continue Xarelto. Neurologically patient is without focal deficits. Is having ongoing issues with constipation and mild lower abdominal pain. No further vomiting. Continue to follow. I performed a history & physical examination of the patient and discussed their management with my nurse practitioner, Maria Ines Guerra. I reviewed the nurse practitioner's note and agree with the documented findings and plan of care. Lung sounds are clear, diminished at the right base. The findings and the impression was discussed with the patient. I attest to the documentation by the nurse practitioner. Time with Patient: Greater than 30
[2018-08-18] MEDS ORDERED: LACTULOSE 20 GM/30 ML CUP PO ONE (15:51)
[2018-08-18 17:09] LABS: Glucose,Whole Blood 147 mg/dL (75-99)
[2018-08-18 21:03] LABS: Glucose,Whole Blood 133 mg/dL (75-99)
[2018-08-18] MEDS: ASPIRIN 81 MG PO SCH (22:58)
[2018-08-18] MEDS: ATORVASTATIN 10 MG TAB PO SCH (22:58)
[2018-08-18] MEDS: LISINOPRIL 20 MG TAB PO SCH (22:58)
[2018-08-18] MEDS: RIVAROXABAN 15 MG TAB PO SCH (22:58)
[2018-08-19] MEDS: traMADol 50 MG TAB PO PRN ×2 (05:12→14:07)
[2018-08-19 06:59] LABS: Glucose,Whole Blood 134 mg/dL (75-99)
[2018-08-19] MEDS: PANTOPRAZOLE 40 MG TABLET PO SCH (08:00)
[2018-08-19] MEDS: DOCUSATE 100 MG CAP PO SCH ×2 (08:00→21:42)
[2018-08-19 08:30] LABS: Basophils % (A) 0 %; Eosinophils # (A) 0.1 k/uL (0-0.7); Eosinophils % (A) 2 %; HCT 38.9 % (39.0-53.0); HGB 12.4 gm/dL (13.0-17.5); Hypochromasia Slight; Lymphocytes # (A) 1.2 k/uL (1.0-4.8); Lymphocytes % (A) 18 %; MCH 31.3 pg (25.0-35.0); MCHC 31.8 g/dL (31.0-37.0); MCV 98.3 fL (80.0-100.0); Mean Platelet Volume 9.6; Monocytes # (A) 0.5 k/uL (0-1.0); Monocytes % (A) 7 %; Neutrophils # (A) 4.6 k/uL (1.3-7.7); Neutrophils % (A) 71 %; Platelet Count 132 k/uL (150-450); RBC 3.95 m/uL (4.30-5.90); RDW 13.2 % (11.5-15.5); WBC 6.4 k/uL (3.8-10.6)
[2018-08-19 08:33] LABS: ALT 25 U/L (21-72); AST 22 U/L (17-59); Albumin 3.2 g/dL (3.5-5.0); Alkaline Phosphatase 44 U/L (38-126); Anion Gap 4 mmol/L; Blood Urea Nitrogen 15 mg/dL (9-20); Calcium 8.4 mg/dL (8.4-10.2); Carbon Dioxide 34 mmol/L (22-30); Chloride 102 mmol/L (98-107); Glucose 109 mg/dL (74-99); Potassium 4.1 mmol/L (3.5-5.1); Sodium 140 mmol/L (137-145); Total Bilirubin 0.6 mg/dL (0.2-1.3); Total Protein 5.8 g/dL (6.3-8.2)
--- NOTE | 2018-08-19 09:30 | CONS ---
CONSULTATION DATE OF CONSULTATION: 08/18/2018 CHIEF COMPLAINT: Gait instability. HISTORY OF PRESENT ILLNESS: Mr. Rizzo is a pleasant 83-year-old male, who is being evaluated today on 08/18/2018 by the Neurology Service per the request of Dr. Doan for gait instability. The patient was brought into [facility] Emergency room mainly for complaints of nausea and vomiting for approximately 1 week. He had some facial bruising and reported that he had fallen a week ago. He did suffer a laceration above the eye. He does have history of atrial fibrillation and does take Xarelto for anticoagulation. Regarding his gait, he states that he does feel unsteady when he is walking. He denies any dizziness or vertigo but does report occasional lightheadedness. A CT scan of the brain was done, which showed generalized atrophy and small-vessel ischemic changes. His CBC showed anemia with a hemoglobin of 11 and hematocrit of 35% and thrombocytopenia at 135,000. His pCO2 was elevated at 65. Pulmonology has been consulted. His urinalysis was normal. His comprehensive metabolic profile showed elevated bicarb at 39 and slightly elevated BUN at 32. At the time of my evaluation, he is lying in his bed and appears to be in no acute distress. He does have his BiPAP machine on with a nasal pillow mask. He denies any lateralizing numbness or weakness. PAST MEDICAL HISTORY: Atrial fibrillation, coronary artery disease, diabetes, hypertension, lumbar stenosis, chronic low back pain, history of prostate surgery and cholecystectomy. He also has a history of depression. SOCIAL HISTORY: The patient is a former smoker. He rarely drinks alcohol. He denies any drug use. FAMILY HISTORY: Noncontributory. HOME MEDICATIONS: Reviewed in the chart. ALLERGIES: No known drug allergies. REVIEW OF SYSTEMS: As mentioned above. And also positive for chronic urinary retention and joint pain. Otherwise, review of system is negative. PHYSICAL EXAM: Vital signs show a temperature of 98.4, pulse 73, respirations 16, blood pressure 110/54. Pulse ox is 90%. GENERAL APPEARANCE: The patient is a well-developed, elderly male, who appears to be in no acute distress. HEENT: Facial bruising is seen along with facial laceration. No facial asymmetry is noticed. NECK: Supple with no masses felt. CARDIOVASCULAR: Irregularly irregular rhythm with a normal rate. ABDOMEN: Nontender, nondistended. EXTREMITIES: Showed no edema or clubbing. NEUROLOGICAL EXAM: The patient is awake and oriented x3. Speech and language are normal. No lateralizing weakness is seen. Sensory exam showed diminished light touch sensation in bilateral distal lower extremities. Mild postural tremors are seen. No facial asymmetry is noticed on cranial nerve testing. IMPRESSION: 1. Recurrent falls. 2. Possible neuropathy. 3. Lower extremity sensory deficit. 4. Chronic pain syndrome. 5. Shortness of breath/hypoxia. RECOMMENDATION: The patient has been having some falling episodes and has been feeling instability when he is walking. This could be related to dehydration given his significant nausea and vomiting over the past week. This could also be related to his hypoxia and hypercapnia and Pulmonology is following regarding this. On my examination, he does have some light touch sensory deficit on bilateral distal lower extremities. He does have history of diabetes and could have small fiber neuropathy. I do recommend outpatient neurophysiological workup. For now, I will order a vitamin B12 level, TSH, serum protein electrophoresis, and vitamin B6 levels. The patient may benefit from inpatient rehab once he is cleared for discharge. Continue the rest of your current workup and management. I will continue to follow with you. Further recommendations to follow. Thank you for allowing me to participate in the care of your patient. If you have any questions, please feel free to contact me. EDIE / BERNARDINO: [phone] /
[2018-08-19] MEDS ORDERED: NA PHOS,M-B/NA PHOS,DI-BA 133 ML ENEMA RECTAL ONE (10:40)
[2018-08-19 11:42] LABS: Glucose,Whole Blood 119 mg/dL (75-99)
[2018-08-19] MEDS ORDERED: LORATADINE 10 MG TAB PO PRN (11:58)
--- NOTE | 2018-08-19 11:59 | P.PN ---
Subjective Progress Note Date: 08/19/18 This is a 83-year-old male patient of Dr. Zuluaga. Patient presented to the emergency room with complaints of nausea and vomiting for 2 days. Patient fell one week prior that resulted in head injury and laceration to left forehead, patient reported to the emergency room and was discharged at that time. Patient has a known past medical history of atrial fibrillation, coronary artery, marni, diabetes mellitus and hypertension. Patient is currently on xarelato for atrial fibrillation. Patient also has history of hybercarbia and uses a non-invasive venitlator for sleep. Per patient's has been has not been wearing it as consistently as usual which may be contributing to increased confusion and unsteady gait. Patient follows with Dr. Lyman outpatient for pulmonary. Head CT completed showing cerebral atrophy. There is some chronic small vessel ischemia. No acute intracranial abnormality. Brain appears unchanged compared to old exam. Chest x-ray completed showing chronic elevated right diaphragm. No heart failure. No significant change compared to old exam. KUB completed of abdomen showing nonacute abdomen. Amylase less than 30 , lipase 12. Dr. Sánchez consulted for neurology. Patient and requesting pulmonary services to be consulted. Patient is alert and oriented 3. Patient does not display any neuro deficits. Equal strength throughout. No signs of slurred speech or facial droop. On 08/19/2018 patient is currently resting comfortably in bed. at bedside. Patient still has not been able Bowel movement. Lactulose 1 time dose given yesterday. Will order enema for today. Patient denies any nausea and vomiting. Patient has been wearing noninvasive ventilator. Dr. Lomeli following for pulmonary. Patient denies chest pain or shortness of breath. Patient denies any urinary burning or frequency. Patient denies any nausea vomiting or diarrhea. Does complain of constipation Objective - Vital Signs Vital signs: Vital Signs Temp 97.3 F L 08/19/18 05:00 Pulse 56 L 08/19/18 05:00 Resp 17 08/19/18 05:00 BP 174/80 08/19/18 05:00 Pulse Ox 93 L 08/19/18 05:00 Intake & Output 08/18/18 08/19/18 08/19/18 18:59 06:59 18:59 Intake Total 400 800 Output Total 300 Balance 100 800 Intake: Intake, IV Titration 400 400 Amount Sodium Chloride 0.9% 1, 400 400 000 ml @ 50 mls/hr IV . Q20H [facility] Rx#:[id number] Oral 400 Output: Urine 300 Straight 300 Other: Voiding Method Diaper Diaper Diaper Self-Catheterization Self-Catheterization Self-Catheterization # Voids 2 - Exam Head normocephalic Neck supple Lungs clear to auscultation bilaterally no wheezing or crackles Heart regular rate and rhythm S1-S2, no rub or gallop Abdomen is soft nontender nondistended positive bowel sounds no hepatosplenomegaly Extremities no edema Neuro alert and orientated to 3 - Labs CBC & Chem 7: 08/19/18 07:52 08/19/18 07:52 Labs: Abnormal Lab Results - Last 24 Hours (Table) 08/18/18 08/18/18 08/19/18 Range/Units 17:07 20:53 06:57 RBC (4.30-5.90) m/uL Hgb (13.0-17.5) gm/dL Hct (39.0-53.0) % Plt Count (150-450) k/uL Carbon Dioxide (22-30) mmol/L Creatinine (0.66-1.25) mg/dL Glucose (74-99) mg/dL POC Glucose (mg/dL) 147 H 133 H 134 H (75-99) mg/dL Total Protein (6.3-8.2) g/dL Albumin (3.5-5.0) g/dL 08/19/18 08/19/18 08/19/18 Range/Units 07:52 07:52 11:40 RBC 3.95 L (4.30-5.90) m/uL Hgb 12.4 L (13.0-17.5) gm/dL Hct 38.9 L (39.0-53.0) % Plt Count 132 L (150-450) k/uL Carbon Dioxide 34 H (22-30) mmol/L Creatinine 0.50 L (0.66-1.25) mg/dL Glucose 109 H (74-99) mg/dL POC Glucose (mg/dL) 119 H (75-99) mg/dL Total Protein 5.8 L (6.3-8.2) g/dL Albumin 3.2 L (3.5-5.0) g/dL Assessment and Plan Assessment: 1. Weakness, Nausea, vomiting and altered mentation with increased confusion. KUB completed completed showing nonacute abdomen. UA negative for infection. Pulmonary services following for chronic hypercapnic respiratory failure. Per patient's patient has been noncompliant with the AVAPs noninvasive ventilator. 2. Recent fall with injury to head. patient fell one week prior. Head CT completed this admission showing cerebral atrophy. There is some chronic small vessel ischemia. No acute intracranial abnormality. Brain appears unchanged compared to old exam. Neurology has been consulted 3. 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 Patient wears noninvasive home ventilator. Chest x-ray completed in emergency room showing chronic elevated right diaphragm. No heart failure. No significant change compared to old exam. Patient's family requesting pulmonary services be consulted. 4. Atrial fibrillation patient maintained on xarelto. 5. Diabetes mellitus 6. Essential hypertension 7. History of coronary artery disease 8. Urinary incontinence patient self cath at least 4 times a day. Follow-up outpatient with urology for Botox injection 9. Chronic back pain, patient has pain stimulator. Patient expressed concerns that he does not feel like it is working follows outpatient with pain management. Patient management has been consulted 10. Scoliosis 11. Constipation. Patient states bowel movement in 6 days. Lactulose given yesterday with no result. Enema will be ordered today DVT prophylaxis of xarelato, GI prophylaxis Protonix
--- NOTE | 2018-08-19 11:59 | P.PN ---
Subjective Progress Note Date: 08/19/18 Principal diagnosis: Confusion, chronic CO2 retainer, right diaphragmatic paralysis This is a 83-year-old white male patient of Dr. Zuluaga, who presented to the emergency department on on 08/17/2018 for evaluation of nausea, vomiting, and confusion. Patient symptoms started about a week ago, patient had a fall, and sustained a laceration to his left forehead above the left eye. He was seen in the emergency department, and the left forearm abrasion and left knee pain. Patient is on Eliquis for chronic atrial fibrillation. Left above the eye laceration was approximated with sutures. He had a CT of the head, C-spine as well as the facial bones, and there were no acute changes. Patient was neurologically intact, patient was started on Keflex for his contaminated wounds from the dirt and grass and subsequently discharged home. 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 Following the fall, patient was unable to wear his AVAPS mask related to facial bruising, and laceration, for about a week. Today he presents to the emergency department with complaints of vomiting over the past 24 hours, total of 6 episodes. He reports some mild lower abdominal pain, no fever or chills, no focal weakness, no headache, or vision changes. Patient reports not being able to have a bowel movement in the last 4 days. Patient was noted to be more confused and was noted to be quite unstable on his feet. Brain CT showed cerebral atrophy, some chronic small vessel ischemia. Chest x-ray showed a chronically elevated right diaphragm, no heart failure. KUB showed nonacute abdomen. Venous blood gas was obtained in the emergency department and showed pH of 7.40, pCO2 of 65, and bicarb of 39, consistent with chronic hypercapnic respiratory failure. WBC was 8.2, hemoglobin is 13.2, platelet, is 142, INR is 1.2, sodium is 141, chloride was 94, CO2 is 39, BUN is 32, creatinine is 0.59. LFTs were within normal limits. Urinalysis showed trace protein, occasional bacteria but negative for leukocyte esterase or nitrites. Amylase was less than 30, lipase was 12. Patient is receiving gentle hydration in the form of 0.9 normal saline at a rate of 50 ML per hour. Patient was able to wear his AVAPS again, and on today's labs CO2 is down to 33. Patient is awake and alert , he is answering questions appropriately. Effusion seems to have resolved, although patient continues to have some weakness, constipation, and mild lower abdominal discomfort. On 08/19/2018 patient seen in follow-up on the fifth medical surgical floor. He is on his a AVAPS, at home settings, tolerating it well, he is awake and alert, oriented 3, no further confusion. Patient did desaturate during meal when he was off his ventilator, subsequently placed back on it and his O2 sat has recovered. Afebrile. Still having issues with constipation. Abdomen is soft. Lung sounds are clear, diminished at the right base, no rhonchi, no wheezes. Objective - Vital Signs Vital signs: Vital Signs Temp 97.3 F L 08/19/18 05:00 Pulse 56 L 08/19/18 05:00 Resp 17 08/19/18 05:00 BP 174/80 08/19/18 05:00 Pulse Ox 93 L 08/19/18 05:00 Intake & Output 08/18/18 08/19/18 08/19/18 18:59 06:59 18:59 Intake Total 400 800 Output Total 300 Balance 100 800 Intake: Intake, IV Titration 400 400 Amount Sodium Chloride 0.9% 1, 400 400 000 ml @ 50 mls/hr IV . Q20H [facility] Rx#:[id number] Oral 400 Output: Urine 300 Straight 300 Other: Voiding Method Diaper Diaper Diaper Self-Catheterization Self-Catheterization Self-Catheterization # Voids 2 - Exam GENERAL EXAM: Alert, doesn't, 83-year-old white male comfortable in no apparent distress. Currently on AVAPS machine HEAD: Normocephalic/atraumatic. Healing laceration with stitches above left eye , facial bruising noted on the left side EYES: Normal reaction of pupils, equal size. Conjunctiva pink, sclera white. NOSE: Clear with pink turbinates. THROAT: No erythema or exudates. NECK: No masses, no JVD, no thyroid enlargement, no adenopathy. CHEST: No chest wall deformity. Symmetrical expansion. LUNGS: Equal air entry with no crackles, wheeze, rhonchi or dullness. Diminished breath sounds over right base CVS: Regular rate and rhythm, normal S1 and S2, no gallops, no murmurs, no rubs ABDOMEN: Soft, nontender. No hepatosplenomegaly, normal bowel sounds, no guarding or rigidity. EXTREMITIES: No clubbing, trace edema in the pretibial areas and ankles, no cyanosis, 2+ pulses and upper and lower extremities. Left knee is covered with a dressing MUSCULOSKELETAL: Muscle strength and tone normal. SPINE: No scoliosis or deformity SKIN: No rashes CENTRAL NERVOUS SYSTEM: Alert and oriented -3. No focal deficits, tone is normal in all 4 extremities. PSYCHIATRIC: Alert and oriented -3. Appropriate affect. Intact judgment and insight. - Labs CBC & Chem 7: 08/19/18 07:52 08/19/18 07:52 Labs: Abnormal Lab Results - Last 24 Hours (Table) 08/18/18 08/18/18 08/19/18 Range/Units 17:07 20:53 06:57 RBC (4.30-5.90) m/uL Hgb (13.0-17.5) gm/dL Hct (39.0-53.0) % Plt Count (150-450) k/uL Carbon Dioxide (22-30) mmol/L Creatinine (0.66-1.25) mg/dL Glucose (74-99) mg/dL POC Glucose (mg/dL) 147 H 133 H 134 H (75-99) mg/dL Total Protein (6.3-8.2) g/dL Albumin (3.5-5.0) g/dL 08/19/18 08/19/18 08/19/18 Range/Units 07:52 07:52 11:40 RBC 3.95 L (4.30-5.90) m/uL Hgb 12.4 L (13.0-17.5) gm/dL Hct 38.9 L (39.0-53.0) % Plt Count 132 L (150-450) k/uL Carbon Dioxide 34 H (22-30) mmol/L Creatinine 0.50 L (0.66-1.25) mg/dL Glucose 109 H (74-99) mg/dL POC Glucose (mg/dL) 119 H (75-99) mg/dL Total Protein 5.8 L (6.3-8.2) g/dL Albumin 3.2 L (3.5-5.0) g/dL Assessment and Plan Plan: Assessment: #1. Altered mentation, increased confusion could be related to acute on chronic hypercapnic respiratory failure, related to temporary noncompliance with the AVAPs noninvasive ventilation due to facial lacerations. Could also be related to mild dehydration #2. Chronic right diaphragm paralysis, with chronic hypercapnic respiratory failure on AVAPS with tidal volume of 450, EPAP of 5 minimal, and 10 maximum, and a pressure support of 4 minimum and 20 maximum. #3. Weakness, nausea, vomiting, mild lower abdominal pain possibly related to ileus. Patient has been unable to have a bowel movement for several days #4. 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 Chronic atrial fibrillation, on Xarelto #7. Diabetes mellitus type 2 #8. Hypertension, hyperlipidemia #9. Urinary incontinence and recurrent UTIs #10. Chronic back pain, patient has a pain stimulator #11. Scoliosis #12. Depression Plan: Continue with the AVAPS at the home settings. Vital signs are stable. Continue with current medical treatment, continue Xarelto. Neurologically patient is without focal deficits. Is having ongoing issues with constipation and mild lower abdominal pain. No further vomiting. Continue to follow. I performed a history & physical examination of the patient and discussed their management with my nurse practitioner, Maria Ines Guerra. I reviewed the nurse practitioner's note and agree with the documented findings and plan of care. Lung sounds are clear, diminished at the right base. The findings and the impression was discussed with the patient. I attest to the documentation by the nurse practitioner. Time with Patient: Less than 30
[2018-08-19] MEDS: SODIUM CHLORIDE 0.9% 1,000 ML IV SCH ×2 (13:00→21:43)
[2018-08-19 13:01] VITALS: RESP 18
[2018-08-19] MEDS: CEPHALEXIN 500 MG CAP PO SCH (16:21)
[2018-08-19 16:36] LABS: Glucose,Whole Blood 147 mg/dL (75-99)
[2018-08-19 18:42] LABS: Protein, Total 5.7 g/dL (6.2-8.2)
[2018-08-19 20:02] LABS: Glucose,Whole Blood 180 mg/dL (75-99)
--- NOTE | 2018-08-19 20:44 | P.PN ---
Subjective Progress Note Date: 08/19/18 Principal diagnosis: gait instability Neurology is following on an 83-year-old male for gait instability. Patient was brought to the emergency room with complaints of nausea, vomiting for approximately 7 days. Patient had facial bruising and reported falling approximately a week ago. Patient suffered a laceration above the eye and does have history of atrial fibrillation. Patient is on Xarelto for anticoagulation therapy. Patient does have known issue with unsteadiness with ambulation. He denies any dizziness or vertigo but does report occasional lightheadedness. CT of the brain was done which showed generalized atrophy and chronic small vessel ischemic disease. CBC noted anemia and thrombocytopenia. Urinalysis was normal. CMP noted elevated BUN and bicarb. At time of evaluation patient was resting supine in bed with spouse at the bedside. Patient does have BiPAP machine with mask. Patient denies any lateralizing weakness or numbness. On contact, patient was alert and oriented 3 in no acute distress. Objective - Vital Signs Vital signs: Vital Signs Temp 99.1 F 08/19/18 13:00 Pulse 57 L 08/19/18 13:00 Resp 18 08/19/18 13:00 BP 136/60 08/19/18 13:00 Pulse Ox 96 08/19/18 13:00 Intake & Output 08/19/18 08/19/18 08/20/18 06:59 18:59 06:59 Intake Total 800 Balance 800 Intake: Intake, IV Titration 400 Amount Sodium Chloride 0.9% 1, 400 000 ml @ 50 mls/hr IV . Q20H [facility] Rx#:[id number] Oral 400 Other: Voiding Method Diaper Diaper Self-Catheterization Self-Catheterization # Voids 2 5 # Bowel Movements 3 - Exam General appearance: Alert & oriented x3, no apparent distress. Head: Atraumatic, normocephalic, normal inspection Eyes: Well appearance, PERRLA, EOMI. Absent scleral icterus, conjunctival injection, nystagmus, periorbital swelling. Ear, nose and throat: Normal exam, mucous membranes moist Neck: Normal inspection, absent tenderness, lymphadenopathy. Respiratory: No increased work of breathing Cardiovascular: Regular rate, rhythm GI/abdominal: No guarding Extremities: Full range of motionweak Neurological: cranial nerves II through XII intact No facial asymmetry and cranial nerve testing no lateralizing weakness no seizure activity noted on physical exam no pronator drift and no nystagmus. Mild postural tremor Sensation: Light touch distal lower extremities Psychological: Mood and Affect appropriate for setting - Labs CBC & Chem 7: 08/19/18 07:52 08/19/18 07:52 Labs: Abnormal Lab Results - Last 24 Hours (Table) 08/18/18 08/19/18 08/19/18 Range/Units 20:53 06:57 07:52 RBC (4.30-5.90) m/uL Hgb (13.0-17.5) gm/dL Hct (39.0-53.0) % Plt Count (150-450) k/uL Carbon Dioxide 34 H (22-30) mmol/L Creatinine 0.50 L (0.66-1.25) mg/dL Glucose 109 H (74-99) mg/dL POC Glucose (mg/dL) 133 H 134 H (75-99) mg/dL Total Protein 5.8 L (6.3-8.2) g/dL Total Protein (PEP) (6.2-8.2) g/dL Albumin 3.2 L (3.5-5.0) g/dL Vitamin B12 (200.0-944.0) pg/mL 08/19/18 08/19/18 08/19/18 Range/Units 07:52 07:52 11:40 RBC 3.95 L (4.30-5.90) m/uL Hgb 12.4 L (13.0-17.5) gm/dL Hct 38.9 L (39.0-53.0) % Plt Count 132 L (150-450) k/uL Carbon Dioxide (22-30) mmol/L Creatinine (0.66-1.25) mg/dL Glucose (74-99) mg/dL POC Glucose (mg/dL) 119 H (75-99) mg/dL Total Protein (6.3-8.2) g/dL Total Protein (PEP) 5.7 L (6.2-8.2) g/dL Albumin (3.5-5.0) g/dL Vitamin B12 996.0 H (200.0-944.0) pg/mL 08/19/18 08/19/18 Range/Units 16:35 20:01 RBC (4.30-5.90) m/uL Hgb (13.0-17.5) gm/dL Hct (39.0-53.0) % Plt Count (150-450) k/uL Carbon Dioxide (22-30) mmol/L Creatinine (0.66-1.25) mg/dL Glucose (74-99) mg/dL POC Glucose (mg/dL) 147 H 180 H (75-99) mg/dL Total Protein (6.3-8.2) g/dL Total Protein (PEP) (6.2-8.2) g/dL Albumin (3.5-5.0) g/dL Vitamin B12 (200.0-944.0) pg/mL Assessment and Plan (1) Neuropathy Current Visit: Yes Status: Acute Code(s): G62.9 - POLYNEUROPATHY, UNSPECIFIED SNOMED Code(s): 936937045 (2) Multiple falls Current Visit: Yes Status: Acute Code(s): R29.6 - REPEATED FALLS SNOMED Code(s): 617238341 (3) Unstable gait Current Visit: Yes Status: Acute Code(s): R26.81 - UNSTEADINESS ON FEET SNOMED Code(s): 23610941 (4) Chronic pain Current Visit: No Status: Acute Code(s): G89.29 - OTHER CHRONIC PAIN SNOMED Code(s): 39978144 Plan: Patient does have sensory deficit in the bilateral distal lower extremities. Patient does have history of diabetes and some small fiber neuropathy as previously noted. Patient does need outpatient neurophysiological workup as previously noted and supervising physicians note from yesterday. Continue to can Dr. correction of any correctable underlying etiology related to B12, TSH, serum protein electrophoresis, B6 level. Patient may need also referral to inpatient rehab on discharge for lower extremity weakness and strengthening. Patient can be cleared from a neurological standpoint for discharge with recommendation for further follow-up in the outpatient setting with our office for ongoing diagnostic workup and testing related to his neuropathy. Status: Patient can be cleared for discharge from a neurological standpoint. The free to contact our office with any questions. Patient to follow-up in our office within 14 days. I have discussed the plan of care with the physician prior to implementation and he agrees with the plan as implemented.
[2018-08-19 21:36] LABS: Hemoglobin A1C 5.9 % (4.0-6.0)
[2018-08-19] MEDS: ASPIRIN 81 MG PO SCH (21:42)
[2018-08-19] MEDS: ATORVASTATIN 10 MG TAB PO SCH (21:42)
[2018-08-19] MEDS: RIVAROXABAN 15 MG TAB PO SCH (21:43)
[2018-08-19] MEDS: LISINOPRIL 20 MG TAB PO SCH (21:43)
[2018-08-19] MEDS: HYDROCORTISONE 1% CREAM 30 GM TUBE TOPICAL SCH (21:43)
[2018-08-19] MEDS: TROSPIUM CHLORIDE 20 MG TABLET PO SCH (21:43)
[2018-08-20] MEDS: CEPHALEXIN 500 MG CAP PO SCH ×2 (01:13→08:32)
[2018-08-20] MEDS: SODIUM CHLORIDE 0.9% 1,000 ML IV SCH (05:53)
[2018-08-20 07:00] LABS: Glucose,Whole Blood 105 mg/dL (75-99)
[2018-08-20 08:27] LABS: Basophils % (A) 0 %; Eosinophils # (A) 0.2 k/uL (0-0.7); Eosinophils % (A) 2 %; HCT 37.9 % (39.0-53.0); HGB 11.9 gm/dL (13.0-17.5); Hypochromasia Slight; Lymphocytes # (A) 1.1 k/uL (1.0-4.8); Lymphocytes % (A) 18 %; MCHC 31.2 g/dL (31.0-37.0); MCV 99.3 fL (80.0-100.0); Mean Platelet Volume 9.9; Monocytes # (A) 0.4 k/uL (0-1.0); Monocytes % (A) 7 %; Neutrophils # (A) 4.3 k/uL (1.3-7.7); Neutrophils % (A) 70 %; Platelet Count 137 k/uL (150-450); RBC 3.82 m/uL (4.30-5.90); RDW 13.4 % (11.5-15.5); WBC 6.2 k/uL (3.8-10.6)
[2018-08-20] MEDS: traMADol 50 MG TAB PO PRN (08:28)
[2018-08-20] MEDS: DOCUSATE 100 MG CAP PO SCH (08:31)
[2018-08-20] MEDS: PANTOPRAZOLE 40 MG TABLET PO SCH (08:33)
[2018-08-20] MEDS: TROSPIUM CHLORIDE 20 MG TABLET PO SCH (08:34)
[2018-08-20] MEDS: HYDROCORTISONE 1% CREAM 30 GM TUBE TOPICAL SCH (08:34)
[2018-08-20 08:44] LABS: ALT 25 U/L (21-72); AST 20 U/L (17-59); Albumin 3.2 g/dL (3.5-5.0); Alkaline Phosphatase 45 U/L (38-126); Anion Gap 4 mmol/L; Blood Urea Nitrogen 11 mg/dL (9-20); Calcium 8.6 mg/dL (8.4-10.2); Carbon Dioxide 34 mmol/L (22-30); Chloride 101 mmol/L (98-107); Glucose 107 mg/dL (74-99); Potassium 4.3 mmol/L (3.5-5.1); Sodium 139 mmol/L (137-145); Total Bilirubin 0.6 mg/dL (0.2-1.3); Total Protein 5.8 g/dL (6.3-8.2)
[2018-08-20] MEDS ORDERED: ESCITALOPRAM 20 MG TAB PO SCH (09:00)
[2018-08-20] MEDS ORDERED: NON-FORMULARY DRUG (Omega-3 Fatty Acids/Fish Oil [Fish Oil 1,000 Mg Softgel] 1 CAP) PO SCH (09:00)
[2018-08-20] MEDS ORDERED: DULoxetine HCL 60 MG CAPSULE.DR PO SCH (09:00)
[2018-08-20 11:23] LABS: Glucose,Whole Blood 137 mg/dL (75-99)
--- NOTE | 2018-08-20 11:24 | P.PN ---
Subjective Progress Note Date: 08/20/18 Principal diagnosis: Confusion, chronic CO2 retainer, right diaphragmatic paralysis This is a 83-year-old white male patient of Dr. Zuluaga, who presented to the emergency department on on 08/17/2018 for evaluation of nausea, vomiting, and confusion. Patient symptoms started about a week ago, patient had a fall, and sustained a laceration to his left forehead above the left eye. He was seen in the emergency department, and the left forearm abrasion and left knee pain. Patient is on Eliquis for chronic atrial fibrillation. Left above the eye laceration was approximated with sutures. He had a CT of the head, C-spine as well as the facial bones, and there were no acute changes. Patient was neurologically intact, patient was started on Keflex for his contaminated wounds from the dirt and grass and subsequently discharged home. 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 Following the fall, patient was unable to wear his AVAPS mask related to facial bruising, and laceration, for about a week. Today he presents to the emergency department with complaints of vomiting over the past 24 hours, total of 6 episodes. He reports some mild lower abdominal pain, no fever or chills, no focal weakness, no headache, or vision changes. Patient reports not being able to have a bowel movement in the last 4 days. Patient was noted to be more confused and was noted to be quite unstable on his feet. Brain CT showed cerebral atrophy, some chronic small vessel ischemia. Chest x-ray showed a chronically elevated right diaphragm, no heart failure. KUB showed nonacute abdomen. Venous blood gas was obtained in the emergency department and showed pH of 7.40, pCO2 of 65, and bicarb of 39, consistent with chronic hypercapnic respiratory failure. WBC was 8.2, hemoglobin is 13.2, platelet, is 142, INR is 1.2, sodium is 141, chloride was 94, CO2 is 39, BUN is 32, creatinine is 0.59. LFTs were within normal limits. Urinalysis showed trace protein, occasional bacteria but negative for leukocyte esterase or nitrites. Amylase was less than 30, lipase was 12. Patient is receiving gentle hydration in the form of 0.9 normal saline at a rate of 50 ML per hour. Patient was able to wear his AVAPS again, and on today's labs CO2 is down to 33. Patient is awake and alert , he is answering questions appropriately. Effusion seems to have resolved, although patient continues to have some weakness, constipation, and mild lower abdominal discomfort. On 08/19/2018 patient seen in follow-up on the fifth medical surgical floor. He is on his a AVAPS, at home settings, tolerating it well, he is awake and alert, oriented 3, no further confusion. Patient did desaturate during meal when he was off his ventilator, subsequently placed back on it and his O2 sat has recovered. Afebrile. Still having issues with constipation. Abdomen is soft. Lung sounds are clear, diminished at the right base, no rhonchi, no wheezes. On 08/20/2018 patient seen in follow-up. Doing well, he is wearing his AVAPS at least 6 hours at night, and as needed during the day. Currently on room air , and his pulse ox is 91%. Respirations are even and nonlabored, lung sounds are clear to auscultation, diminished at the right base. No abdominal pain, patient had several bowel movements today. No nausea or vomiting. His labs have been reviewed, and the BBC 6.2, hemoglobin is 11.9, electrolytes and renal profile are essentially unremarkable, CO2 is 34. Objective - Vital Signs Vital signs: Vital Signs Temp 97.6 F 08/20/18 05:00 Pulse 71 08/20/18 05:00 Resp 18 08/20/18 05:00 BP 158/90 08/20/18 05:00 Pulse Ox 91 L 08/20/18 08:38 Intake & Output 08/19/18 08/20/18 08/20/18 18:59 06:59 18:59 Intake Total 1210 Balance 1210 Intake: Intake, IV Titration 650 Amount Sodium Chloride 0.9% 1, 650 000 ml @ 50 mls/hr IV . Q20H [facility] Rx#:[id number] Oral 560 Other: Voiding Method Diaper Diaper Diaper Self-Catheterization Incontinent Incontinent Self-Catheterization Self-Catheterization # Voids 5 1 # Bowel Movements 3 1 - Exam GENERAL EXAM: Alert, doesn't, 83-year-old white male comfortable in no apparent distress. Currently on room air HEAD: Normocephalic/atraumatic. Healing laceration with stitches above left eye , facial bruising noted on the left side EYES: Normal reaction of pupils, equal size. Conjunctiva pink, sclera white. NOSE: Clear with pink turbinates. THROAT: No erythema or exudates. NECK: No masses, no JVD, no thyroid enlargement, no adenopathy. CHEST: No chest wall deformity. Symmetrical expansion. LUNGS: Equal air entry with no crackles, wheeze, rhonchi or dullness. Diminished breath sounds over right base CVS: Regular rate and rhythm, normal S1 and S2, no gallops, no murmurs, no rubs ABDOMEN: Soft, nontender. No hepatosplenomegaly, normal bowel sounds, no guarding or rigidity. EXTREMITIES: No clubbing, trace edema in the pretibial areas and ankles, no cyanosis, 2+ pulses and upper and lower extremities. Left knee is covered with a dressing MUSCULOSKELETAL: Muscle strength and tone normal. SPINE: No scoliosis or deformity SKIN: No rashes CENTRAL NERVOUS SYSTEM: Alert and oriented -3. No focal deficits, tone is normal in all 4 extremities. PSYCHIATRIC: Alert and oriented -3. Appropriate affect. Intact judgment and insight. - Labs CBC & Chem 7: 08/20/18 07:33 08/20/18 07:33 Labs: Abnormal Lab Results - Last 24 Hours (Table) 08/19/18 08/19/18 08/19/18 Range/Units 07:52 11:40 16:35 RBC (4.30-5.90) m/uL Hgb (13.0-17.5) gm/dL Hct (39.0-53.0) % Plt Count (150-450) k/uL Carbon Dioxide (22-30) mmol/L Creatinine (0.66-1.25) mg/dL Glucose (74-99) mg/dL POC Glucose (mg/dL) 119 H 147 H (75-99) mg/dL Total Protein (6.3-8.2) g/dL Total Protein (PEP) 5.7 L (6.2-8.2) g/dL Albumin (3.5-5.0) g/dL Vitamin B12 996.0 H (200.0-944.0) pg/mL 08/19/18 08/20/18 08/20/18 Range/Units 20:01 06:59 07:33 RBC 3.82 L (4.30-5.90) m/uL Hgb 11.9 L (13.0-17.5) gm/dL Hct 37.9 L (39.0-53.0) % Plt Count 137 L (150-450) k/uL Carbon Dioxide (22-30) mmol/L Creatinine (0.66-1.25) mg/dL Glucose (74-99) mg/dL POC Glucose (mg/dL) 180 H 105 H (75-99) mg/dL Total Protein (6.3-8.2) g/dL Total Protein (PEP) (6.2-8.2) g/dL Albumin (3.5-5.0) g/dL Vitamin B12 (200.0-944.0) pg/mL 08/20/18 Range/Units 07:33 RBC (4.30-5.90) m/uL Hgb (13.0-17.5) gm/dL Hct (39.0-53.0) % Plt Count (150-450) k/uL Carbon Dioxide 34 H (22-30) mmol/L Creatinine 0.51 L (0.66-1.25) mg/dL Glucose 107 H (74-99) mg/dL POC Glucose (mg/dL) (75-99) mg/dL Total Protein 5.8 L (6.3-8.2) g/dL Total Protein (PEP) (6.2-8.2) g/dL Albumin 3.2 L (3.5-5.0) g/dL Vitamin B12 (200.0-944.0) pg/mL Assessment and Plan Plan: Assessment: #1. Altered mentation, increased confusion could be related to acute on chronic hypercapnic respiratory failure, related to temporary noncompliance with the AVAPs noninvasive ventilation due to facial lacerations. Could also be related to mild dehydration #2. Chronic right diaphragm paralysis, with chronic hypercapnic respiratory failure on AVAPS with tidal volume of 450, EPAP of 5 minimal, and 10 maximum, and a pressure support of 4 minimum and 20 maximum. #3. Weakness, nausea, vomiting, mild lower abdominal pain possibly related to ileus. Patient has been unable to have a bowel movement for several days #4. 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 Chronic atrial fibrillation, on Xarelto #7. Diabetes mellitus type 2 #8. Hypertension, hyperlipidemia #9. Urinary incontinence and recurrent UTIs #10. Chronic back pain, patient has a pain stimulator #11. Scoliosis #12. Depression Plan: Continue current medical treatment, his mentation is back to normal, he was seen and evaluated by neurology, has been cleared for discharge. Remains stable from pulmonary perspective as well, continue AVAPS at home settings. Patient cleared for discharge from pulmonary standpoint, may need placement to subacute rehab in view of his unstable gait. I performed a history & physical examination of the patient and discussed their management with my nurse practitioner, Maria Ines Guerra. I reviewed the nurse practitioner's note and agree with the documented findings and plan of care. Lung sounds are clear, diminished at the right base. The findings and the impression was discussed with the patient. I attest to the documentation by the nurse practitioner. Time with Patient: Less than 30
[2018-08-20 12:00] VITALS: BP 123/73; PULSE 78; TEMP 98
[2018-08-20] MEDS ORDERED: CYANOCOBALAMIN 500 MCG TAB PO SCH (12:00)
[2018-08-20] MEDS ORDERED: LACTOBACILLUS ACIDOPH & BULGAR 1 EACH PACKET PO SCH (12:00)
[2018-08-20] MEDS ORDERED: CHOLECALCIFEROL 1,000 UNIT TAB PO SCH (12:00)
[2018-08-20] MEDS ORDERED: MULTIVITAMINS, THERA 1 EACH TAB PO SCH (12:00)
[2018-08-20 12:57] LABS: Albumin 3.21 g/dL (3.80-4.90); Gamma Globulin 0.82 g/dL (0.70-1.50)
--- NOTE | 2018-08-20 14:24 | P.DS ---
Providers Date of admission: 08/17/18 19:36 Expected date of discharge: 08/20/18 Attending physician: Hortencia Doan Consults: 08/17/18 19:37 Consult Physician Routine Consulting Provider: Veronique Shore Consult Reason/Comments: Gait instability, multiple falls Do you want consulting provider notified?: Yes 08/18/18 11:30 Consult Physician Routine Consulting Provider: Cuate Lomeli Consult Reason/Comments: patient follows outpatient Do you want consulting provider notified?: Yes Primary care physician: Karina Zuluaga Hospital Course: Discharge Diagnosis 1. Weakness, Nausea, vomiting and altered mentation with increased confusion. KUB completed completed showing nonacute abdomen. UA negative for infection. Pulmonary services following for chronic hypercapnic respiratory failure. Per patient's patient has been noncompliant with the AVAPs noninvasive ventilator. Patient cleared for discharge from pulmonary standpoint 2. Recent fall with injury to head. patient fell one week prior. Head CT completed this admission showing cerebral atrophy. There is some chronic small vessel ischemia. No acute intracranial abnormality. Brain appears unchanged compared to old exam. Neurology has been consulted 3. 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 Patient wears noninvasive home ventilator. Chest x-ray completed in emergency room showing chronic elevated right diaphragm. No heart failure. No significant change compared to old exam. Patient's family requesting pulmonary services be consulted. 4. Atrial fibrillation patient maintained on xarelto. 5. Diabetes mellitus 6. Essential hypertension 7. History of coronary artery disease 8. Urinary incontinence patient self cath at least 4 times a day. Follow-up outpatient with urology for Botox injection 9. Chronic back pain, patient has pain stimulator. Patient expressed concerns that he does not feel like it is working follows outpatient with pain management. Patient management has been consulted. Per patient and patient's pain stimulator all figured out. Patient did speak with [employer]. [employer] pain stimulator is working adequately at this time 10. Scoliosis 11. Constipation. Patient states bowel movement in 6 days. Lactulose given yesterday with no result. Enema will be ordered. Patient has had bowel movement. patient will be sent on [facility] Hospital course This is a 83-year-old male patient of Dr. Zuluaga. Patient presented to the emergency room with complaints of nausea and vomiting for 2 days. Patient fell one week prior that resulted in head injury and laceration to left forehead, patient reported to the emergency room and was discharged at that time. Patient has a known past medical history of atrial fibrillation, coronary artery, marni, diabetes mellitus and hypertension. Patient is currently on xarelato for atrial fibrillation. Patient also has history of hybercarbia and uses a non-invasive venitlator for sleep. Per patient's has been has not been wearing it as consistently as usual which may be contributing to increased confusion and unsteady gait. Patient follows with Dr. Lyman outpatient for pulmonary. Head CT completed showing cerebral atrophy. There is some chronic small vessel ischemia. No acute intracranial abnormality. Brain appears unchanged compared to old exam. Chest x-ray completed showing chronic elevated right diaphragm. No heart failure. No significant change compared to old exam. KUB completed of abdomen showing nonacute abdomen. Amylase less than 30 , lipase 12. Dr. Sánchez consulted for neurology. Patient and requesting pulmonary services to be consulted. Patient is alert and oriented 3. Patient does not display any neuro deficits. Equal strength throughout. No signs of slurred speech or facial droop. On 08/19/2018 patient is currently resting comfortably in bed. at bedside. Patient still has not been able Bowel movement. Lactulose 1 time dose given yesterday. Will order enema for today. Patient denies any nausea and vomiting. Patient has been wearing noninvasive ventilator. Dr. Lomeli following for pulmonary. Patient denies chest pain or shortness of breath. Patient denies any urinary burning or frequency. Patient denies any nausea vomiting or diarrhea. Does complain of constipation On 08/22/2018 patient is currently resting comfortably in bed. Per patient and with patient did have bowel movement yesterday and today. Patient denies nausea or vomiting. Patient will be going to [facility] on the [address] for rehab. Patient will be DC'd on Keflex for 5 more days from lacerations on left knee and left gnosticism from previous fall. Patient denies chest pain or shortness of breath. Patient denies any urinary burning or frequency. Patient to be followed by Dr. Doan at [facility], CBC and CMP ordered for 3 days I performed an examination of the patient and discussed their management with the Nurse Practitioner. I have reviewed the Nurse Practitioner's notes and agree with the documented findings and plan of care Patient Condition at Discharge: Stable Plan - Discharge Summary Discharge Rx Participant: No New Discharge Prescriptions: New Docusate [Colace] 100 mg PO BID cap Continue Cetirizine HCl [Zyrtec] 10 mg PO DAILY PRN PRN Reason: ALLERGIES Furosemide [Lasix] 40 mg PO DAILY PRN PRN Reason: FLUID RETENTION Simvastatin [Zocor] 10 mg PO HS Lisinopril 40 mg PO HS Aspirin 81 mg PO HS Rivaroxaban [Xarelto] 15 mg PO HS Multivitamin [Men's Multi-Vitamin] 1 tab PO DAILY Cyanocobalamin [Vitamin B-12] 2,500 mcg PO DAILY DULoxetine HCL [Cymbalta] 120 mg PO QAM Fesoterodine Fumarate [Toviaz] 8 mg PO HS Hydrocortisone Cream [Hydrocortisone 1% Cream] 1 applic TOPICAL BID Diclofenac Sodium Gel [Voltaren Gel] 2 gm TOPICAL QID PRN PRN Reason: Inflammation L.acidoph,Paracasei, B.lactis [Probiotic] 1 cap PO DAILY Escitalopram Oxalate [Lexapro] 20 mg PO DAILY Cholecalciferol [Vitamin D3] 4,000 unit PO DAILY Polyethylene Glycol 3350 [Miralax] 17 gm PO DAILY PRN PRN Reason: Constipation [place]-3 Fatty Acids/Fish Oil [Fish Oil 1,000 mg Softgel] 1 cap PO DAILY Cephalexin [Keflex] 500 mg PO Q8HR 5 Days #15 cap traMADol HCL [Ultram] 100 mg PO TID PRN 3 Days #9 tablet PRN Reason: Pain Discharge Medication List Aspirin 81 mg PO HS 12/06/14 [History] Cetirizine HCl [Zyrtec] 10 mg PO DAILY PRN 12/06/14 [History] Furosemide [Lasix] 40 mg PO DAILY PRN 12/06/14 [History] Lisinopril 40 mg PO HS 12/06/14 [History] Simvastatin [Zocor] 10 mg PO HS 12/06/14 [History] Rivaroxaban [Xarelto] 15 mg PO HS 03/10/15 [History] Cyanocobalamin [Vitamin B-12] 2,500 mcg PO DAILY 03/31/15 [History] DULoxetine HCL [Cymbalta] 120 mg PO QAM 03/31/15 [History] Multivitamin [Men's Multi-Vitamin] 1 tab PO DAILY 05/08/15 [History] Fesoterodine Fumarate [Toviaz] 8 mg PO HS 11/03/15 [History] Cholecalciferol [Vitamin D3] 4,000 unit PO DAILY 08/12/18 [History] Diclofenac Sodium Gel [Voltaren Gel] 2 gm TOPICAL QID PRN 08/12/18 [History] Escitalopram Oxalate [Lexapro] 20 mg PO DAILY 08/12/18 [History] Hydrocortisone Cream [Hydrocortisone 1% Cream] 1 applic TOPICAL BID 08/12/18 [ History] L.acidoph,Paracasei, B.lactis [Probiotic] 1 cap PO DAILY 08/12/18 [History] [place]-3 Fatty Acids/Fish Oil [Fish Oil 1,000 mg Softgel] 1 cap PO DAILY [History] Polyethylene Glycol 3350 [Miralax] 17 gm PO DAILY PRN 08/17/18 [History] Cephalexin [Keflex] 500 mg PO Q8HR 5 Days #15 cap 08/20/18 [Rx] Docusate [Colace] 100 mg PO BID cap 08/20/18 [Rx] traMADol HCL [Ultram] 100 mg PO TID PRN 3 Days #9 tablet 08/20/18 [Rx] Follow up Appointment(s)/Referral(s): Karina Zuluaga MD [Primary Care Provider] - 1-2 days Cuate Lomeli DO [Doctor of Osteopathic Medicine] - As Needed (at [facility]) Veronique Shore MD [STAFF PHYSICIAN] - 3 Weeks [facility], [NON-STAFF] - Hortencia Doan MD [STAFF PHYSICIAN] - 3 Days (at [facility]) Ambulatory/Diagnostic Orders: Complete Blood Count w/diff [LAB.AMB] Time Frame: 3 Days, Location: None Selected Comprehensive Metabolic Panel [LAB.AMB] Time Frame: 3 Days, Location: None Selected Activity/Diet/Wound Care/Special Instructions: DNR at [facility] Consistent carb diet Activity as tolerated Patient self straight caths prn, typically at least QID Per Maria Ines Guerra NP and Dr. Lomeli: AVAPS trilogy vent at least 6 hours QHS plus PRN Continue home settings: tidal volume 450; EPAP min 5, max 10; pressure support min 4, max 20 1-1.5L NC O2 PRN Target O2 saturation 88-92% patient to be followed by Dr. Doan CBC and COMP ordered 3 days Discharge Disposition: TRANSFER TO SNF/ECF
== END 2018-08-20 15:05 | DRG 70 ==
LOC: EC 15:35 → 5MS5E 19:36
PROVIDERS: ADMIT Internal Medicine; ATTEND Internal Medicine
DX: G93.41 Metabolic encephalopathy (principal); J96.21 Acute and chronic respiratory failure with hypoxia; E87.2 Acidosis; D64.9 Anemia, unspecified; D69.6 Thrombocytopenia, unspecified; E78.5 Hyperlipidemia, unspecified; F32.9 Major depressive disorder, single episode, unspecified; F40.240 Claustrophobia; E11.40 Type 2 diabetes mellitus with diabetic neuropathy, unspecified; G89.4 Chronic pain syndrome; I10 Essential (primary) hypertension; I25.10 Atherosclerotic heart disease of native coronary artery without angina pectoris; I25.2 Old myocardial infarction; I48.2 Chronic atrial fibrillation; J61 Pneumoconiosis due to asbestos and other mineral fibers; J98.4 Other disorders of lung; J98.6 Disorders of diaphragm; K59.00 Constipation, unspecified; M41.9 Scoliosis, unspecified; R29.6 Repeated falls; R32 Unspecified urinary incontinence; Z79.01 Long term (current) use of anticoagulants; Z79.899 Other long term (current) drug therapy; Z87.440 Personal history of urinary (tract) infections; Z87.891 Personal history of nicotine dependence; Z91.19 Patient's noncompliance with other medical treatment and regimen; Z79.82 Long term (current) use of aspirin
CPT/HCPCS: 36415; 70450; 71046; 74018; 80053; 81001; 82150; 82607; 82803; 83036; 83690; 84165; 84207; 84443; 85025; 85610; 85730; 96374; 99285